=== PATIENT | male | born 1955 | race Caucasian/White ===

== ENCOUNTER 2016-10-09 20:08 | Inpatient (IN) | payer OTHER ==
[2016-10-09] MEDS ORDERED: HYDROmorphone 1 mg/ml ISec IVP STA (20:33)
--- NOTE | 2016-10-09 20:37 | ED PDOC ---
"Arrival/HPI - General Chief Complaint: Male Genitourinary Time Seen by Provider: 10/09/16 20:20 Historian: Patient, Family - History of Present Illness Narrative History of Present Illness (Text): 10/09/16 20:34 61 y/o male, pmh including bladder cancer s/p resection 06/2016, from [place], [place] , here with the daughter in law, c/o lower abdominal pain x 2 weeks with hematuria. Pt. has been having lower abdominal pain and been urinating gross hematuria for the past 2 weeks, here to visit the daughter in law which the pain has been very severe tonight which initiated him to come to the ER. pt. has no fever but feels the chills prior to the arrival, afebrile in the ER, no night sweat, no other medical or psychological complaints. Past Medical History - Provider Review Nursing Documentation Reviewed: Yes - Genitourinary/Gynecological Hx Bladder Cancer: (yes, bladder resection) - Psychiatric Hx Substance Use: No - Surgical History Other/Comment: Bladder resection last june Family/Social History - Physician Review Nursing Documentation Reviewed: Yes Family/Social History: Unknown Family HX Smoking Status: former Hx Alcohol Use: No Hx Substance Use: No Allergies/Home Meds Allergies/Adverse Reactions: Allergies No Known Allergies Allergy (Verified 10/09/16 20:28) Home Medications: Home Meds Medication Instructions Recorded Confirmed RX: No Known Home Med 10/09/16 10/09/16 Review of Systems - Review of Systems Constitutional: absent: Fatigue, Fevers Eyes: absent: Vision Changes ENT: absent: Hearing Changes Respiratory: absent: SOB, Cough Cardiovascular: absent: Chest Pain Gastrointestinal: Abdominal Pain. absent: Nausea, Vomiting Genitourinary Male: Hematuria. absent: Dysuria, Frequency, Urinary Output Changes Skin: absent: Rash, Pruritis Neurological: absent: Headache, Dizziness Physical Exam Vital Signs Reviewed: Yes Vital Signs Temp Pulse Resp BP Pulse Ox 10/09/16 23:33 66 16 137/70 99 10/09/16 20:29 98.2 F 78 18 140/105 H 100 Temperature: Afebrile Blood Pressure: Hypertensive Pulse: Regular Respiratory Rate: Normal Appearance: Positive for: Well-Appearing, Non-Toxic, Ill-Appearing Pain Distress: Severe Mental Status: Positive for: Alert and Oriented X 3 - Systems Exam Head: Present: Atraumatic, Normocephalic Pupils: Present: PERRL Extroacular Muscles: Present: EOMI Conjunctiva: Present: Normal Mouth: Present: Moist Mucous Membranes Neck: Present: Normal Range of Motion Respiratory/Chest: Present: Clear to Auscultation, Good Air Exchange. No: Respiratory Distress, Accessory Muscle Use Cardiovascular: Present: Regular Rate and Rhythm, Normal S1, S2. No: Murmurs Abdomen: Present: Normal Bowel Sounds. No: Tenderness, Distention, Peritoneal Signs Back: Present: Normal Inspection Upper Extremity: Present: Normal Inspection. No: Cyanosis, Edema Lower Extremity: Present: Normal Inspection. No: Edema Neurological: Present: GCS=15, Speech Normal, Motor Func Grossly Intact, Memory Normal Skin: Present: Warm, Dry. No: Normal Color (+jaundice noted) Psychiatric: Present: Alert, Oriented x 3, Normal Insight, Normal Concentration Medical Decision Making ED Course and Treatment: 10/09/16 20:36 -labs/ua/blood culture and urine culture -cxr -CT abdomen and pelvis -IVF/dilaudid -Pt. is sick looking, jaundice, temporal and muscle wasting noted. 10/09/16 23:31 -EKG: -Chest xray: wet read show no active disease -Labs are non-significant -UA show +UTI with hematuria -CT abdomen and pelvis show: Moderate right-sided hydroureteronephrosis secondary to an obstructing mass within the bladder, at the right ureteral orifice. Asymmetric enhancement of the right kidney, as detailed above.Examination is limited, secondary to lack of intra-abdominal fat. The mass within the right ureterovesicular junction measures 9.3 x 3.6 cm. -Pt. will need to be admitted for further evaluation as the mass is causing obstruction with the infection. 10/09/16 23:39 -I spoke to the medical transcriber Dr. Pickard and Dr. Marcial, discussed the case/labs /radiology results in detail, agreed to admit the patient. -Dr. Benson will put in the admission. -Pt. and family agreed to be admitted. - Lab Interpretations Lab Results: 10/09/16 20:30 10/09/16 20:30 Lab Results 10/09/16 20:30: PT 11.0, INR 1.02, APTT 27.3 10/09/16 20:30: Ammonia < 9 L 10/09/16 20:30: WBC 8.2, RBC 3.06 L, Hgb 8.9 L, Hct 27.2 L, MCV 88.9, MCH 29.1, MCHC 32.7, RDW 13.9, Plt Count 349, MPV 9.1, Gran % 58.4, Lymph % (Auto) 32.6, [place] % (Auto) 7.3 H, Eos % (Auto) 1.3 L, Baso % (Auto) 0.4, Gran # 4.81, Lymph # 2.7, [place] # 0.6, Eos # 0.1, Baso # 0.03 10/09/16 20:30: Sodium 137, Potassium 3.7, Chloride 98, Carbon Dioxide 31, Anion Gap 12, BUN 18, Creatinine 0.7, Est GFR ( Amer) > 60, Est GFR (Non- Af Amer) > 60, Random Glucose 100, Calcium 8.6, Total Bilirubin 0.3, AST 46, ALT 45, Alkaline Phosphatase 90, NT-Pro-B Natriuret Pep 508 H, Total Protein 6.8 , Albumin 3.7, Globulin 3.1, Albumin/Globulin Ratio 1.2 10/09/16 20:30: Urine Color Yellow, Urine Appearance Clear, Urine pH 8.5, Ur Specific [place] 1.015, Urine Protein 100 H, Urine Glucose (UA) Negative, Urine Ketones Negative, Urine Blood Large H, Urine Nitrate Positive H, Urine Bilirubin Negative, Urine Urobilinogen 1.0 H, Ur Leukocyte Esterase Trace H, Urine RBC Tntc, Urine WBC 2 - 5, Ur Epithelial Cells None, Urine Bacteria Few I have reviewed the lab results: Yes Interpretation: Abnormal lab values (+hematuria/+UTI) - RAD Interpretation Radiology Orders: 10/09/16 20:31 ABD & PELVIS IV CONTRAST ONLY [CT] Stat CHEST PORTABLE [RAD] Stat FINDINGS: Lower thorax: Bibasilar atelectasis. ABDOMEN: Liver: The liver is enlarged. Gallbladder and bile ducts: The gallbladder is only minimally distended, without calcified stones. No significant intra- or extrahepatic biliary ductal dilation. Pancreas: Enhances homogeneously. No ductal dilation. No discrete mass. Spleen: No acute findings. Adrenals: No acute findings. Kidneys and ureters: Asymmetric enhancement of the bilateral kidneys with decreased enhancement of the right kidney, in comparison to the left. Moderate right-sided hydroureteronephrosis, extending to the right ureterovesicular junction where a multilobulated contrast- enhancing mass is identified. EARL AZAR | Final Radiology Report CONFIDENTIALITY STATEMENT This report is intended only for use by the referring physician, and only in accordance with law. If you received this in error, call [phone]. Page 2 of 2 The remainder of the bladder is moderately distended, demonstrating mass effect on the rectosigmoid colon. Additional nodular enhancement is identified within the base of the bladder (series 2, image 142). The mass within the right ureterovesicular junction measures 9.3 x 3.6 cm. PELVIS: Bladder: As above. Reproductive: No acute findings. ABDOMEN and PELVIS: Stomach and bowel: Aerated stool is identified within the distended colon. Peritoneum: No significant fluid collection. No free air. Lymph nodes: Limited evaluation secondary to the lack of intra-abdominal fat. Vasculature: As above. Bones: Diffuse bony demineralization without lytic or blastic lesions. IMPRESSION: Moderate right-sided hydroureteronephrosis secondary to an obstructing mass within the bladder, at the right ureteral orifice. Asymmetric enhancement of the right kidney, as detailed above. Examination is limited, secondary to lack of intra-abdominal fat. Thank you for allowing us to participate in the care of your patient. Dictated and Authenticated by: Marni Mac MD 10/09/2016 11:03 PM Eastern Time ([place]) Transplant Surgeon: Radiologist - Medication Orders Current Medication Orders: Sodium Chloride (Sodium Chloride 0.9%) 1,000 mls @ 100 mls/hr IV .Q10H BARBARA Last Admin: 10/09/16 21:40 Dose: 100 mls/hr Discontinued Medications Hydromorphone HCl (Dilaudid) 1 mg IVP STAT STA Stop: 10/09/16 20:34 Last Admin: 10/09/16 21:44 Dose: 1 mg Sodium Chloride (Sodium Chloride 0.9%) 1,000 mls @ 250 mls/hr IV .Q4H BARBARA Ceftriaxone Sodium (Rocephin 1 Gram Ivpb) 1 gm in 100 mls @ 200 mls/hr IVPB STAT STA PRN Reason: Protocol Stop: 10/09/16 21:35 Last Admin: 10/09/16 21:50 Dose: 200 mls/hr Iohexol (Omnipaque 300 100 Ml) Confirm Administered Dose 100 ml IJ .[facility] Stop: 10/09/16 21:32 - PA / TAX ASSISTANT / Resident Statement / has reviewed & agrees with the documentation as recorded. Disposition/Present on Arrival - Present on Arrival Any Indicators Present on Arrival: No History of DVT/PE: No History of Uncontrolled Diabetes: No Urinary Catheter: No History of Decub. Ulcer: No History Surgical Site Infection Following: None - Disposition Have Diagnosis and Disposition been Completed?: Yes Diagnosis: Hematuria, Cystitis, Ureteral mass, Anemia Disposition: HOSPITALIZED Disposition Time: 23:41 Patient Plan: Observation Patient Problems: Current Active Problems Problem Status Onset Cystitis Acute Hematuria Acute Soft tissue mass Acute Condition: GUARDED Referrals: Bandar Beverly, [Primary Care Provider] - Follow up with primary Forms: [facility] (Polish)"
[2016-10-09] MEDS ORDERED: Sodium Chloride 0.9% 1,000 ML IV SCH ×2 (20:45→21:29)
[2016-10-09 21:05] LABS: PH,URINE 8.5 (4.7-8.0); URINE BILIRUBIN NEGATIVE (NEGATIVE); URINE BLOOD LARGE (NEGATIVE); URINE GLUCOSE (UA) NEGATIVE (NEGATIVE); URINE KETONE NEGATIVE (NEGATIVE); URINE LEUKOCYTE ESTERASE TRACE Leu/uL (NEGATIVE); URINE PROTEIN 100 mg/dL (<30 mg/dL)
[2016-10-09 21:06] LABS: URINE APPEARANCE CLEAR (CLEAR); URINE COLOR YELLOW (YELLOW)
[2016-10-09] MEDS ORDERED: cefTRIAXone 1 gm 1 GM/100 ML BAG IVPB STA (21:06)
[2016-10-09 21:10] LABS: BASO # 0.03 K/mm3 (0.0-2.0); BASO % 0.4 % (0.0-3.0); EOS # 0.1 (0.0-0.7); EOS % 1.3 % (1.5-5.0); GRAN # 4.81 (1.4-6.5); GRAN % 58.4 % (50.0-68.0); HEMATOCRIT 27.2 % (42.0-52.0); LYMPH # 2.7 (1.2-3.4); LYMPH % 32.6 % (22.0-35.0); MEAN CELL VOLUME 88.9 fl (80.0-105.0); MEAN CORPUSCULAR HEMOGLOBIN 29.1 pg (25.0-35.0); MEAN CORPUSCULAR HGB CONC 32.7 g/dl (31.0-37.0); MEAN PLATELET VOLUME 9.1 fl (7.0-11.0); MONO # 0.6 (0.1-0.6); MONO % 7.3 % (1.0-6.0); RED CELL DISTRIBUTION WIDTH 13.9 % (11.5-14.5); WHITE BLOOD COUNT 8.2 10^3/ul (4.5-11.0)
[2016-10-09 21:12] LABS: ALB/GLOB RATIO 1.2 (1.1-1.8); ALKALINE PHOSPHATASE 90 U/L (38-126); ALT/SGPT 45 U/L (7-56); AST/SGOT 46 U/L (17-59); BILIRUBIN,TOTAL 0.3 mg/dL (0.2-1.3); BLOOD UREA NITROGEN 18 mg/dL (7-21); CALCIUM 8.6 mg/dL (8.4-10.5); CARBON DIOXIDE 31 mmol/L (21-33); CHLORIDE 98 mmol/L (98-107); GFR AFRICAN-AMERICAN > 60; GLUCOSE,RANDOM 100 mg/dL (70-110); POTASSIUM 3.7 mmol/L (3.6-5.0); SODIUM 137 mmol/L (132-148); TOTAL PROTEIN 6.8 g/dL (5.8-8.3)
[2016-10-09 21:15] LABS: INR 1.02 (0.93-1.08); PARTIAL THROMBOPLASTIN TIME 27.3 Seconds (23.7-30.8)
[2016-10-09] MEDS ORDERED: Iohexol 300 100 ML IJ ONE (21:31)
[2016-10-09 21:50] LABS: URINE BACTERIA FEW (NEG); URINE RBC TNTC /hpf (0-2)
--- NOTE | 2016-10-09 23:03 | CT ---
EXAM: CT Abdomen and Pelvis With Intravenous Contrast CLINICAL HISTORY: 61 years old, male; Pain; Abdominal pain; Additional info: Lower abdominal pain x 2 weeks TECHNIQUE: Axial computed tomography images of the abdomen and pelvis with intravenous contrast. All CT scans at this facility use one or more dose reduction techniques, viz.: automated exposure control; ma/kV adjustment per patient size (including targeted exams where dose is matched to indication; i.e. head); or iterative reconstruction technique. Coronal and sagittal reformatted images were created and reviewed. CONTRAST: 100 mL of [id number] administered intravenously. COMPARISON: No relevant prior studies available. FINDINGS: Lower thorax: Bibasilar atelectasis. ABDOMEN: Liver: The liver is enlarged. Gallbladder and bile ducts: The gallbladder is only minimally distended, without calcified stones. No significant intra- or extrahepatic biliary ductal dilation. Pancreas: Enhances homogeneously. No ductal dilation. No discrete mass. Spleen: No acute findings. Adrenals: No acute findings. Kidneys and ureters: Asymmetric enhancement of the bilateral kidneys with decreased enhancement of the right kidney, in comparison to the left. Moderate right-sided hydroureteronephrosis, extending to the right ureterovesicular junction where a multilobulated contrast-enhancing mass is identified. The remainder of the bladder is moderately distended, demonstrating mass effect on the rectosigmoid colon. Additional nodular enhancement is identified within the base of the bladder (series 2, image 142). The mass within the right ureterovesicular junction measures 9.3 x 3.6 cm. PELVIS: Bladder: As above. Reproductive: No acute findings. ABDOMEN and PELVIS: Stomach and bowel: Aerated stool is identified within the distended colon. Peritoneum: No significant fluid collection. No free air. Lymph nodes: Limited evaluation secondary to the lack of intra-abdominal fat. Vasculature: As above. Bones: Diffuse bony demineralization without lytic or blastic lesions. IMPRESSION: Moderate right-sided hydroureteronephrosis secondary to an obstructing mass within the bladder, at the right ureteral orifice. Asymmetric enhancement of the right kidney, as detailed above. Examination is limited, secondary to lack of intra-abdominal fat.
[2016-10-10] MEDS: Sodium Chloride 0.9% 1,000 ML IV SCH ×3 (02:37→15:56)
[2016-10-10 03:41] VITALS: BMI 18.4
--- NOTE | 2016-10-10 04:54 | CP.PCM.HP ---
<WANDA SCHULTZ - Last Filed: 10/10/16 04:48> History of Present Illness - History of Present Illness History of Present Illness: Wanda Schultz, H&P for Dr. Marcial: CC: severe suprapubic pain HPI: 61M with PMH bladder cancer s/p laser surgery in 06/2016, presents with severe suprapubic pain x 1 day [employer]. Pt has been having crampy suprapubic/pelvic pain and gross hematuria for past 2 weeks. The pain worsened today, requiring him to come to ED. He denies any f/c/n/v, decreased appetite, anorexia, poor oral intake, cp, palpitations, sob, weakness, fatigue, dysphagia, weight loss, leg swelling. In ED, pt afebrile, hgb 8.9, mildly elevated bnp 508, UA + infxn and blood, Ct abd pelvis showed R sided hydronephrosis, tumor growth 9.3x3.6 cm at right ureteral orifice. Received rocephin x1 IV, dilaudid 1 mgx1 in ED. PMH: bladder cancer s/p laser surgery (06/2016 in [place], [place]) PSH: bladder laser surgery ALl: NKA FH: denies SH: lives with family in [place], [place]. currently visiting son in [place]. Denies alcohol use for past few years, occasionally drank few beers per day when he was young. Quit smoking 20 years ago, previously 1 ppd x 15 years. denies drug use. Ambulates by self, able to do his ADLs independently. Present on Admission - Present on Admission Any Indicators Present on Admission: No History of DVT/PE: No History of Uncontrolled Diabetes: No Urinary Catheter: No Decubitus Ulcer Present: No History Surgical Site Infection Following: None Review of Systems - Review of Systems All systems: reviewed and no additional remarkable complaints except Review of Systems: as per hPI Past Patient History - Past Social History Smoking Status: Former Smoker - MUSCULOSKELETAL/RHEUMATOLOGICAL Hx Falls: No Hx Fractures: Yes Other/Comment: Has plate on the right hip - GENITOURINARY/GYNECOLOGICAL Hx Bladder Cancer: (yes, bladder resection) - PSYCHIATRIC Hx Substance Use: No - SURGICAL HISTORY Other/Comment: Bladder resection last june Meds Allergies/Adverse Reactions: Allergies Allergy/AdvReac Type Severity Reaction Status Date / Time No Known Allergies Allergy Verified 10/09/16 20:28 Physical Exam - Constitutional Appears: Non-toxic, Older Than Stated Age, Cachectic - Head Exam Head Exam: ATRAUMATIC, NORMOCEPHALIC - Eye Exam Eye Exam: EOMI, PERRL. absent: Conjunctival injection, Scleral icterus Pupil Exam: NORMAL ACCOMODATION, PERRL - ENT Exam ENT Exam: Mucous Membranes Moist - Neck Exam Neck exam: Positive for: Normal Inspection - Respiratory Exam Respiratory Exam: Clear to Auscultation Bilateral, NORMAL BREATHING PATTERN. absent: Accessory Muscle Use - Cardiovascular Exam Cardiovascular Exam: RRR, +S1, +S2. absent: Systolic Murmur - GI/Abdominal Exam GI & Abdominal Exam: Soft, Tenderness. absent: Guarding, Mass, Rigid Additional comments: + suprapubic and pelvic tenderness noted. - Extremities Exam Extremities exam: Positive for: pedal pulses present. Negative for: calf tenderness, pedal edema - Back Exam Back exam: absent: CVA tenderness (L), CVA tenderness (R), vertebral tenderness - Neurological Exam Neurological exam: Alert, Oriented x3 Results - Vital Signs Recent Vital Signs: Last Vital Signs Temp 98.2 F 10/10/16 03:21 Pulse 57 L 10/10/16 03:21 Resp 19 10/10/16 03:21 BP 140/85 10/10/16 03:21 Pulse Ox 99 10/09/16 23:33 - Labs Result Diagrams: 10/09/16 20:30 10/09/16 20:30 Assessment & Plan - Assessment and Plan (Free Text) Assessment: 61 [place] M with PMH bladder cancer s/p laser resection (06/2016), admitted for UTI and gross hematuria 2/2 likely uretero obstructing mass; anemia. Plan: UTI and hematuria 2/2 likely uretero obstructing mass: - Pt has been having gross hematuria (with clots of blood in urine), suprapubic pain x 2 weeks. The pain was very severe today, thats why pt came to ED. - afebrile. no leukocytosis, Hgb 8.9 (baseline unknown). - UA showed clear yellow urine, protein 100, large blood, rbc tntc, + nitrate and trace leuk esterase, few bacteria, neg bili, 2-5 wbcs. - Coags within nrml limits - BUN/cr 18/0.7. - received rocephin x1, dilaudid in ed - F/u urine culture. - Consult Urology - Dr. Woods. f/u recs. Normocytic Anemia: - Likely 2/2 acute blood loss. - Consider obtaining Type & Screen - F/u iron studies, b12, folate Hx of bladder cancer: - F/u urology recs DVT PPX: SCDs GI PPX: Protonix Discussed with Dr Marcial. Wanda Schultz, PGY1 - Date & Time Date: 10/10/16 Time: 05:05 <Aggie HOLT,Jonny - Last Filed: 10/13/16 09:44> Results - Vital Signs Recent Vital Signs: Last Vital Signs Temp 98 F 10/13/16 08:00 Pulse 66 10/13/16 08:00 Resp 20 10/13/16 08:00 BP 132/78 10/13/16 08:00 Pulse Ox 99 10/13/16 08:00 - Labs Result Diagrams: 10/13/16 06:55 10/13/16 06:55 Labs: Laboratory Results - last 24 hr 10/13/16 10/13/16 10/13/16 06:55 06:55 06:55 WBC 7.2 RBC 3.27 L Hgb 9.3 L Hct 29.2 L MCV 89.3 MCH 28.4 MCHC 31.8 RDW 14.4 Plt Count 377 MPV 9.2 Gran % 69.3 H Lymph % (Auto) 18.9 L [place] % (Auto) 9.3 H Eos % (Auto) 2.2 Baso % (Auto) 0.3 Gran # 5.00 Lymph # 1.4 [place] # 0.7 H Eos # 0.2 Baso # 0.02 Sodium 139 Potassium 4.3 Chloride 106 Carbon Dioxide 23 Anion Gap 14 BUN 28 H Creatinine 1.0 Est GFR ( Amer) > 60 Est GFR (Non-Af Amer) > 60 Random Glucose 87 Calcium 8.5 Total Bilirubin 0.1 L AST 53 ALT 29 Alkaline Phosphatase 90 Total Protein 6.7 Albumin 3.5 Globulin 3.3 Albumin/Globulin Ratio 1.1 Carcinoembryonic Ag 1.4 Attending/Attestation - Attestation I have personally seen and examined this patient.: Yes I have fully participated in the care of the patient.: Yes I have reviewed all pertinent clinical information: Yes Notes (Text): -I agree with the above H&P completed by the resident physician with the following additions and/or changes: -The patient is a 61 year old man with a history of bladder cancer (s/p laser resection 06/2016), being admitted for UTI and gross hematuria due to a new, right-sided obstructive bladder mass. He will be evaluated by urology in the morning. IV Morphine for pain control. Will keep NPO and start IVF's overnight.
[2016-10-10] MEDS: Pantoprazole 40 mg EC Tab PO SCH (06:22)
[2016-10-10 07:26] LABS: BASO # 0.02 K/mm3 (0.0-2.0); BASO % 0.3 % (0.0-3.0); EOS # 0.1 (0.0-0.7); EOS % 0.9 % (1.5-5.0); GRAN # 5.06 (1.4-6.5); GRAN % 72.1 % (50.0-68.0); HEMATOCRIT 27.3 % (42.0-52.0); LYMPH # 1.3 (1.2-3.4); LYMPH % 18.9 % (22.0-35.0); MEAN CELL VOLUME 88.3 fl (80.0-105.0); MEAN CORPUSCULAR HEMOGLOBIN 29.1 pg (25.0-35.0); MEAN PLATELET VOLUME 8.5 fl (7.0-11.0); MONO # 0.6 (0.1-0.6); MONO % 7.8 % (1.0-6.0)
[2016-10-10 07:37] LABS: ALKALINE PHOSPHATASE 91 U/L (38-126); ALT/SGPT 36 U/L (7-56); AST/SGOT 41 U/L (17-59); BILIRUBIN,TOTAL 0.5 mg/dL (0.2-1.3); BLOOD UREA NITROGEN 11 mg/dL (7-21); CALCIUM 8.5 mg/dL (8.4-10.5); CARBON DIOXIDE 28 mmol/L (21-33); CHLORIDE 104 mmol/L (95-110); GFR AFRICAN-AMERICAN > 60; GLUCOSE,RANDOM 85 mg/dL (70-110); MAGNESIUM 1.9 mg/dL (1.7-2.2); PHOSPHOROUS 2.8 mg/dL (2.5-4.5); POTASSIUM 3.8 mmol/L (3.6-5.0); SODIUM 138 mmol/L (132-148); TOTAL PROTEIN 6.6 g/dL (5.8-8.3)
[2016-10-10 08:28] LABS: IRON 34 ug/dL (45-180)
--- NOTE | 2016-10-10 08:31 | RAD ---
HISTORY: medical clearance COMPARISON: None available. TECHNIQUE: Chest, one view. FINDINGS: LUNGS: No focal consolidation. Please note that chest x-ray has limited sensitivity for the detection of pulmonary masses. PLEURA: No significant pleural effusion identified. No definite pneumothorax . CARDIOVASCULAR: Heart size appears top normal. OSSEOUS STRUCTURES: Osseous demineralization. Degenerative changes. VISUALIZED UPPER ABDOMEN: Unremarkable. OTHER FINDINGS: None. IMPRESSION: No focal consolidation, significant pleural effusion, or definite pneumothorax identified.
[2016-10-10] MEDS: cefTRIAXone 1 gm 1 GM/100 ML BAG IVPB SCH (11:05)
[2016-10-10 13:29] LABS: FOLATE 8.6 ng/mL
[2016-10-11] MEDS: Pantoprazole 40 mg EC Tab PO SCH (05:49)
[2016-10-11 07:58] LABS: ALKALINE PHOSPHATASE 94 U/L (38-126); ALT/SGPT 31 U/L (7-56); AST/SGOT 30 U/L (17-59); BILIRUBIN,TOTAL 0.5 mg/dL (0.2-1.3); BLOOD UREA NITROGEN 14 mg/dL (7-21); CALCIUM 8.8 mg/dL (8.4-10.5); CARBON DIOXIDE 24 mmol/L (21-33); CHLORIDE 104 mmol/L (95-110); GFR AFRICAN-AMERICAN > 60; GLUCOSE,RANDOM 88 mg/dL (70-110); MAGNESIUM 1.8 mg/dL (1.7-2.2); PHOSPHOROUS 3.3 mg/dL (2.5-4.5); POTASSIUM 4.5 mmol/L (3.6-5.0); SODIUM 136 mmol/L (132-148); TOTAL PROTEIN 6.9 g/dL (5.8-8.3)
[2016-10-11] MEDS: Sodium Chloride 0.9% 1,000 ML IV SCH ×3 (08:13→17:38)
[2016-10-11 08:21] LABS: BASO # 0.02 K/mm3 (0.0-2.0); BASO % 0.3 % (0.0-3.0); EOS # 0.2 (0.0-0.7); EOS % 3.2 % (1.5-5.0); GRAN # 4.88 (1.4-6.5); GRAN % 70.6 % (50.0-68.0); HEMATOCRIT 29.9 % (42.0-52.0); LYMPH # 1.3 (1.2-3.4); LYMPH % 18.7 % (22.0-35.0); MEAN CELL VOLUME 89.3 fl (80.0-105.0); MEAN CORPUSCULAR HEMOGLOBIN 28.7 pg (25.0-35.0); MEAN CORPUSCULAR HGB CONC 32.1 g/dl (31.0-37.0); MEAN PLATELET VOLUME 9.4 fl (7.0-11.0); MONO # 0.5 (0.1-0.6); MONO % 7.2 % (1.0-6.0); RED CELL DISTRIBUTION WIDTH 14.3 % (11.5-14.5); WHITE BLOOD COUNT 6.9 10^3/ul (4.5-11.0)
[2016-10-11] MEDS: cefTRIAXone 1 gm 1 GM/100 ML BAG IVPB SCH (10:30)
--- NOTE | 2016-10-11 13:36 | CP.PCM.PN ---
"<Logan Henriquez - Last Filed: 10/11/16 14:54> Subjective - Date & Time of Evaluation Date of Evaluation: 10/11/16 Time of Evaluation: 13:34 - Subjective Subjective: Patient has been seen and examined. He reports decreased suprapubic tenderness. Denies Fever, Chills, CP, SOB, or change in bowel habits. Objective - Vital Signs/Intake and Output Vital Signs (last 24 hours): Temp Pulse Resp BP Pulse Ox 98.0 F 59 L 20 128/81 97 10/11/16 08:00 10/11/16 08:00 10/11/16 08:00 10/11/16 08:00 10/11/16 08:00 Intake and Output: 10/11/16 10/11/16 06:59 18:59 Intake Total 540 Output Total 500 Balance 40 - Medications Medications: Current Medications Sodium Chloride (Sodium Chloride 0.9%) 1,000 mls @ 100 mls/hr IV .Q10H [facility] Last Admin: 10/11/16 08:13 Dose: 100 mls/hr Ceftriaxone Sodium (Rocephin 1 Gram Ivpb) 1 gm in 100 mls @ 100 mls/hr IVPB DAILY [facility] PRN Reason: Protocol Last Admin: 10/11/16 10:30 Dose: 100 mls/hr Morphine Sulfate (Morphine) 2 mg IVP Q4H PRN PRN Reason: Pain, severe (8-10) Ondansetron HCl (Zofran Inj) 4 mg IVP Q6H PRN PRN Reason: Nausea/Vomiting Pantoprazole Sodium (Protonix Ec Tab) 40 mg PO 0600 [facility] Last Admin: 10/11/16 05:49 Dose: 40 mg - Labs Labs: 10/11/16 06:50 10/11/16 06:50 PT 11.0 Seconds (9.9-11.8) 10/09/16 20:30 INR 1.02 (0.93-1.08) 10/09/16 20:30 APTT 27.3 Seconds (23.7-30.8) 10/09/16 20:30 - Constitutional Appears: Non-toxic, No Acute Distress - Head Exam Head Exam: ATRAUMATIC, NORMOCEPHALIC - Eye Exam Eye Exam: Normal appearance - ENT Exam ENT Exam: Mucous Membranes Moist - Respiratory Exam Respiratory Exam: Clear to Ausculation Bilateral - Cardiovascular Exam Cardiovascular Exam: +S1, +S2 - GI/Abdominal Exam Additional comments: suprapubic tenderness with palpable bladder. - Extremities Exam Extremities Exam: Normal Capillary Refill. absent: Pedal Edema - Neurological Exam Neurological Exam: Alert, Oriented x3 - Psychiatric Exam Psychiatric exam: Normal Affect, Normal Mood - Skin Skin Exam: Normal Color Assessment and Plan - Assessment and Plan (Free Text) Assessment: 61 Amharic M with PMH bladder cancer s/p laser resection (06/2016), admitted for UTI and gross hematuria 2/2 to bladder mass shown on CT. CT also showed hydronephrosis 2/2 to bladder mass. Patient also anemic on admission, likely secondary to the gross hematuria. Afebrile with no leukocytosis on admission. Plan: 1. Hematuria 2/2 likely uretero obstructing mass: - afebrile. no leukocytosis, Hgb 9.6 (trending up) (baseline unknown). - Urine output 2000 today - UA on admission showed clear yellow urine, protein 100, large blood, rbc tntc , + nitrate and trace leuk esterase, few bacteria, neg bili, 2-5 wbcs. - Urine Cultures (negative) | Prelim blood culture shows no growth after 24 hours. Rocephin DCd - Coags within nrml limits - Normal Kidney function - Consult Urology - Dr. Woods. f/u recs. - 2. Normocytic Anemia 2/2 to gross hematuria: - Likely 2/2 acute blood loss. - Iron studies show low iron and low iron Sat. - Hgb Trending up at 9.6 3. Hx of bladder cancer: - Urology consulted (Chuck) - Oncology consulted (Jovan) DVT PPX: SCDs GI PPX: Protonix Dispo: Patients family is very concerned about patients condition. They are also frustrated that they have not gotten any additional answers since patient has been admitted. They specifically want to know whether the cancer is localized or if it has spread. They want a full scan of the whole body and a report to confirm this. Oncology was also consulted on the case. Per family, if cancer has spread they do not want treatment. If it is localized they do want treatment. Further history from family (Son and daughter in law) revealed that they were recommended additional chemo and radiation therapy when they followed up with previous urologist and they refused. Contact for family is Mike Duarte (son) . He or daughter-in law would like to be contacted if there are any updates. Patient seen, reviewed, and discussed with Attending. Logan Henriquez, PGY1 <Yani Mcconnell - Last Filed: 10/12/16 17:00> Objective - Vital Signs/Intake and Output Vital Signs (last 24 hours): Temp Pulse Resp BP Pulse Ox 98.1 F 61 18 135/82 99 10/12/16 16:20 10/12/16 16:20 10/12/16 16:20 10/12/16 16:20 10/12/16 08:00 Intake and Output: 10/12/16 10/12/16 06:59 18:59 Intake Total 700 Output Total 1251 Balance -551 - Medications Medications: Current Medications Acetaminophen (Tylenol 325mg Tab) 650 mg PO Q4H PRN PRN Reason: Pain, Mild (1-3) Enoxaparin Sodium (Lovenox) 30 mg SC DAILY [facility] PRN Reason: Protocol Last Admin: 10/11/16 17:27 Dose: 30 mg Sodium Chloride (Sodium Chloride 0.9%) 1,000 mls @ 100 mls/hr IV .Q10H [facility] Last Admin: 10/12/16 14:11 Dose: 100 mls/hr Morphine Sulfate (Morphine) 2 mg IVP Q4H PRN PRN Reason: Pain, severe (8-10) Ondansetron HCl (Zofran Inj) 4 mg IVP Q6H PRN PRN Reason: Nausea/Vomiting Pantoprazole Sodium (Protonix Ec Tab) 40 mg PO 0600 [facility] Last Admin: 10/12/16 05:27 Dose: Not Given - Labs Labs: 10/12/16 06:45 10/12/16 06:45 PT 11.0 Seconds (9.9-11.8) 10/09/16 20:30 INR 1.02 (0.93-1.08) 10/09/16 20:30 APTT 27.3 Seconds (23.7-30.8) 10/09/16 20:30 Attending/Attestation - Attestation I have personally seen and examined this patient.: Yes I have fully participated in the care of the patient.: Yes I have reviewed all pertinent clinical information, including history, physical exam and plan: Yes Notes (Text): 10/12/16 16:50 Attending note; Patient seen and examined with resident. Patient is a 61-year-old male is admitted with suprapubic pain. Patient was diagnosed with bladder cancer patient had cystoscopy and biopsy done by in JUNE 2016 in [place]. The patient was referred to [facility] DR. Banks. As per family the patient was staged as T2 N0 M0. Patient did not want chemotherapy/radiation and surgery as recommended by [facility] in June 2016. Currently family is requesting oncology to stage the patient. As per patient wishes he does not want any aggressive treatment if the tumor is spread beyond the bladder area. CT showed significant bladder mass and right hydronephrosis. CT chest ordered. Oncology evaluation requested. Case discussed with urologist dr. Woods in detail. Urology will discuss with family for further care. Anemia; got 1 dose of IV iron. Cachexia; dietitian evaluation ordered. Case discussed with patient's son/daughter in Law in detail. 10/12/16 16:54 10/12/16 16:59"
[2016-10-11] MEDS ORDERED: Iohexol 350 MG/100 ML VIAL ONE (14:25)
[2016-10-11] MEDS ORDERED: Enoxaparin 30 mg Syringe SC SCH (16:45)
--- NOTE | 2016-10-11 17:06 | CT ---
CT chest with IV contrast Indication: Rule out pulmonary Mets, bladder cancer Technique: Contiguous axial images were obtained through the chest with intravenous contrast enhancement. Sagittal and coronal reconstructions were generated and reviewed. This CT exam was performed using 1 or more of the falling dose reduction techniques: Automated exposure control, adjustment of the MAA and/or kV according to patient size, and/or use of iterative reconstruction technique. IV Contrast: 100 mL Omnipaque 350 Radiation dose (DLP): 148.67 MGy-cm. Comparison: Chest x-ray performed 10/09/16 Findings: Visualized portions of the inferior thyroid gland appear unremarkable. The mediastinal and hilar vascular structures appear within normal limits. The heart appears within normal limits of size. No large central or segmental pulmonary embolus evident. No focal consolidation. No pleural effusion. No pneumothorax. No suspicious pulmonary nodules measuring greater than 5 mm. Limited visualization of the upper abdomen reveals partially imaged hepatomegaly. Numerous too small to characterize hepatic hypodensities throughout the liver, the largest measuring approximately 9 mm. Asymmetric enhancement of the bilateral kidneys with decreased enhancement of the right kidney as compared to the left. Partially imaged moderate hydronephrosis. Please refer to CT of the abdomen and pelvis with contrast performed 10/09/16 for more detailed discussion an additional findings. Osseous demineralization. No acute osseous abnormality is detected. Impression: No pulmonary pathology appreciated. Limited visualization of the upper abdomen: Partially imaged hepatomegaly. Numerous too small to characterize hepatic hypodensities throughout the liver, the largest measuring approximately 9 mm. Asymmetric enhancement of the bilateral kidneys with decreased enhancement of the right kidney as compared to the left. Partially imaged moderate hydronephrosis. Please refer to CT of the abdomen and pelvis with contrast performed 10/09/16 for more detailed discussion an additional findings.
--- NOTE | 2016-10-11 22:15 | PCM.URO ---
Urology Progress Note - Subjective Hematuria: Yes - Objective Intake & Output: Intake & Output 10/11/16 10/11/16 10/12/16 06:59 18:59 06:59 Intake Total 480 Output Total 1100 Balance -620 Intake: Oral 480 Output: Urine 1100 Urine, Voided 1100 Other: # Bowel Movements 1 Vital Signs: Vital Signs - 24 hr 10/11/16 16:00 Temperature 97.8 F Pulse Rate 55 L Respiratory 16 Rate Blood Pressure 131/81 O2 Sat by Pulse 98 Oximetry - Plan Additional Information: plans: to be discussed / may need cystoscopy /
[2016-10-12] MEDS: Pantoprazole 40 mg EC Tab PO SCH (05:27)
[2016-10-12 07:10] LABS: ALB/GLOB RATIO 1.1 (1.1-1.8); ALKALINE PHOSPHATASE 98 U/L (38-126); ALT/SGPT 35 U/L (7-56); AST/SGOT 48 U/L (17-59); BILIRUBIN,TOTAL 0.1 mg/dL (0.2-1.3); BLOOD UREA NITROGEN 16 mg/dL (7-21); CALCIUM 8.8 mg/dL (8.4-10.5); CARBON DIOXIDE 28 mmol/L (21-33); CHLORIDE 104 mmol/L (98-107); GFR AFRICAN-AMERICAN > 60; GLUCOSE,RANDOM 86 mg/dL (70-110); MAGNESIUM 1.8 mg/dL (1.7-2.2); PHOSPHOROUS 2.9 mg/dL (2.5-4.5); POTASSIUM 4.2 mmol/L (3.6-5.0); SODIUM 140 mmol/L (132-148)
[2016-10-12 07:13] LABS: BASO # 0.03 K/mm3 (0.0-2.0); BASO % 0.4 % (0.0-3.0); EOS # 0.2 (0.0-0.7); EOS % 2.9 % (1.5-5.0); GRAN # 4.4 (1.4-6.5); GRAN % 62.9 % (50.0-68.0); HEMATOCRIT 30.8 % (42.0-52.0); LYMPH # 1.7 (1.2-3.4); LYMPH % 24.5 % (22.0-35.0); MEAN CELL VOLUME 89.3 fl (80.0-105.0); MEAN CORPUSCULAR HEMOGLOBIN 28.4 pg (25.0-35.0); MEAN CORPUSCULAR HGB CONC 31.8 g/dl (31.0-37.0); MEAN PLATELET VOLUME 9.3 fl (7.0-11.0); MONO # 0.7 (0.1-0.6); MONO % 9.3 % (1.0-6.0); RED CELL DISTRIBUTION WIDTH 14.3 % (11.5-14.5)
--- NOTE | 2016-10-12 07:17 | CARD ---
APPROVED REPORT EKG Measurement Heart [id number] <Conclusion> Sinus bradycardia Otherwise normal ECG
--- NOTE | 2016-10-12 08:48 | CP.PCM.PN ---
<Nathalia Faustin - Last Filed: 10/12/16 17:41> Subjective - Date & Time of Evaluation Date of Evaluation: 10/12/16 Time of Evaluation: 08:46 - Subjective Subjective: PGY-2 Hospitalist progress note. Patient seen and examined at bedside. No acute distress. Patient denies any new pain. He continues to have pubic pain consistent with previous pain. He denies chest pain, sob, back pain, n/v/d/c. Objective - Vital Signs/Intake and Output Vital Signs (last 24 hours): Temp Pulse Resp BP Pulse Ox 97.9 F 81 18 140/83 99 10/12/16 08:00 10/12/16 08:00 10/12/16 08:00 10/12/16 08:00 10/12/16 08:00 Intake and Output: 10/12/16 10/12/16 06:59 18:59 Intake Total 700 Output Total 1251 Balance -551 - Medications Medications: Current Medications Enoxaparin Sodium (Lovenox) 30 mg SC DAILY [facility] PRN Reason: Protocol Last Admin: 10/11/16 17:27 Dose: 30 mg Sodium Chloride (Sodium Chloride 0.9%) 1,000 mls @ 100 mls/hr IV .Q10H [facility] Last Admin: 10/11/16 17:38 Dose: 100 mls/hr Morphine Sulfate (Morphine) 2 mg IVP Q4H PRN PRN Reason: Pain, severe (8-10) Ondansetron HCl (Zofran Inj) 4 mg IVP Q6H PRN PRN Reason: Nausea/Vomiting Pantoprazole Sodium (Protonix Ec Tab) 40 mg PO 0600 [facility] Last Admin: 10/12/16 05:27 Dose: Not Given - Labs Labs: 10/12/16 06:45 10/12/16 06:45 PT 11.0 Seconds (9.9-11.8) 10/09/16 20:30 INR 1.02 (0.93-1.08) 10/09/16 20:30 APTT 27.3 Seconds (23.7-30.8) 10/09/16 20:30 - Constitutional Appears: No Acute Distress, Chronically Ill - Head Exam Head Exam: ATRAUMATIC, NORMOCEPHALIC - Eye Exam Eye Exam: Normal appearance - ENT Exam ENT Exam: Mucous Membranes Moist - Respiratory Exam Respiratory Exam: Clear to Ausculation Bilateral, NORMAL BREATHING PATTERN. absent: Decreased Breath Sounds, Rales, Rhonchi, Wheezes, Respiratory Distress - Cardiovascular Exam Cardiovascular Exam: REGULAR RHYTHM, +S1, +S2. absent: Tachycardia, Murmur - GI/Abdominal Exam GI & Abdominal Exam: Soft, Normal Bowel Sounds. absent: Distended, Firm, Guarding Additional comments: pubic tenderness - Extremities Exam Extremities Exam: Full ROM, Normal Inspection. absent: Pedal Edema, Tenderness - Back Exam Back Exam: NORMAL INSPECTION. absent: CVA tenderness (L), CVA tenderness (R), paraspinal tenderness - Neurological Exam Neurological Exam: Alert, Awake, Oriented x3 - Skin Skin Exam: Dry, Intact, Normal Color, Warm Assessment and Plan - Assessment and Plan (Free Text) Assessment: 61 [place]uran M with PMH bladder cancer s/p laser resection (06/2016), admitted for gross hematuria 2/2 to bladder mass shown on CT. CT also showed hydronephrosis 2 /2 to bladder mass. Patient found to be anemic on admission, likely secondary to the gross hematuria. Plan: 1. Hematuria 2/2 likely uretero obstructing mass: - afebrile. no leukocytosis - Urine output 2350 over past 24 hours - UA on admission showed clear yellow urine, protein 100, large blood, rbc tntc , + nitrate and trace leuk esterase, few bacteria, neg bili, 2-5 wbcs. - Urine Cultures is negative - blood culture shows no growth after 48 hours - Rocephin stopped yesterday - Normal Kidney function - CT chest did not show any pulmonary masses or lymph nodes - Consult Urology - Dr. Woods. - possible cystoscope tomorrow 2. Normocytic Anemia 2/2 to gross hematuria: - Likely 2/2 acute blood loss. - Iron studies show low iron and low iron Sat. - iron sucrose given yesterday - Hgb 9.8 today 3. Hx of bladder cancer: - Urology consulted, Dr. Woosd - Oncology consulted, Dr. Aldana DVT PPX: SCDs GI PPX: Protonix Dispo: Contact for family is Mike Duarte (son) . He or daughter- in law would like to be contacted if there are any updates. <Yani Mcconnell - Last Filed: 10/13/16 14:20> Objective - Vital Signs/Intake and Output Vital Signs (last 24 hours): Temp Pulse Resp BP Pulse Ox 98 F 66 20 132/78 99 10/13/16 08:00 10/13/16 08:00 10/13/16 08:00 10/13/16 08:00 10/13/16 08:00 Intake and Output: 10/13/16 10/13/16 06:59 18:59 Intake Total 480 Output Total 500 Balance -20 - Medications Medications: Current Medications Acetaminophen (Tylenol 325mg Tab) 650 mg PO Q4H PRN PRN Reason: Pain, Mild (1-3) Enoxaparin Sodium (Lovenox) 30 mg SC DAILY [facility] PRN Reason: Protocol Last Admin: 10/11/16 17:27 Dose: 30 mg Sodium Chloride (Sodium Chloride 0.9%) 1,000 mls @ 100 mls/hr IV .Q10H [facility] Last Admin: 10/12/16 22:00 Dose: 100 mls/hr Morphine Sulfate (Morphine) 2 mg IVP Q4H PRN PRN Reason: Pain, severe (8-10) Ondansetron HCl (Zofran Inj) 4 mg IVP Q6H PRN PRN Reason: Nausea/Vomiting Pantoprazole Sodium (Protonix Ec Tab) 40 mg PO 0600 [facility] Last Admin: 10/13/16 08:04 Dose: Not Given - Labs Labs: 10/13/16 06:55 10/13/16 06:55 PT 11.0 Seconds (9.9-11.8) 10/09/16 20:30 INR 1.02 (0.93-1.08) 10/09/16 20:30 APTT 27.3 Seconds (23.7-30.8) 10/09/16 20:30 Attending/Attestation - Attestation I have personally seen and examined this patient.: Yes I have fully participated in the care of the patient.: Yes I have reviewed all pertinent clinical information, including history, physical exam and plan: Yes Notes (Text): 10/13/16 14:18 Attending note; Patient seen and examined with resident. Patient is a 61-year-old male is admitted with suprapubic pain. patient with a history of bladder cancer and did not receive any treatment yet. CT showed significant bladder mass and right hydronephrosis. CT chest Is negative for any pulmonary mass of lymphadenopathy. Oncology evaluation appreciated. Needs PET scan as outpatient. Case discussed with urologist dr. Woods in detail. Urology will discuss with family for further care. Anemia; got 1 dose of IV iron. Cachexia; dietitian evaluation ordered. Case discussed with patient's son in detail.
[2016-10-12] MEDS: Sodium Chloride 0.9% 1,000 ML IV SCH ×2 (14:11→22:00)
--- NOTE | 2016-10-12 17:23 | CON ---
DATE: 10/12/2016 This is a [facility] visit on the medical floor. For Dr. Aldana. CHIEF COMPLAINT: Hematuria. HISTORY OF PRESENT ILLNESS: The patient is a 61-year-old Frisian and Albanian speaking male seen with his son at the bedside, who act as blending machine feeder, a resident of [place] who was treated in [facility] in [place] for bladder cancer on 07/02/[address] Miller, telephone number [phone], who was his treating urologist with definitive surgery deferred to Dr. Aly, phone number [phone], as the original urologist is older and the second procedure will be more demanding with referral made as per the son. 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 Pathology report handed today by the son. It is unknown whether the patient had a PET/CT scan, this will be determined. The patient at present is resting comfortably with low suprapubic pain as his main compliant with the patient advised to request pain medications every 4 hours as indicated for his pain. ALLERGIES: NO KNOWN ALLERGIES. MEDICATIONS: At this point include Lovenox, morphine, Protonix, Zofran IV 100 mL an hour with Venofer having discontinued. PAST MEDICAL HISTORY: Significant for questionable TURP in [facility], in [facility] on 07/01/2016 with pathology report as listed above. Otherwise, no significant history of significant as per the patient's son. FAMILY AND SOCIAL HISTORY: The patient has history of smoking in the past;however, he reports having quit many years ago. The patient living with his family in [place], [place] visiting his son in [place]. Denies alcohol use. REVIEW OF SYSTEMS: The patient's son reports weight loss in the recent few weeks due to lack of appetite. The patient presently weighs 101 pounds, 5 feet 2 inches tall. OBJECTIVE: VITAL SIGNS: Temperature 97.9, pulse 81, respirations 18, blood pressure 140/83, pulse ox 99%. GENERAL: He appears cachectic. HEENT: Unremarkable. NECK: Supple. HEART: Regular rate. LUNGS: Clear. ABDOMEN: Scaphoid with minimal tenderness to suprapubic palpation. NEUROLOGIC: Awake, alert and oriented. SKIN: Otherwise warm, dry and clear. LABORATORY DATA: The patient's labs were done. White blood cell count today of 7.0, hemoglobin 9.8, hematocrit of 30.8, platelet count of 401,000 with a chem metabolic panel within normal range with a percent saturation of iron of 13% and 2 days prior vitamin B12 greater than 1000 and folate of 8.6. INR of 1.02 with urine specimen showing large amount of blood. Nitrate positive with no growth on his urine culture and blood cultures. The patient did have CT scan of the abdomen and pelvis done on 10/09/2016. It was read as moderate right-sided hydroureteronephrosis secondary to obstructing mass within bladder at the right ureteral orifice, asymmetric enhancement of the right kidney as examination is limited due to lack of intraabdominal fat. The patient had a CT scan of his chest done yesterday was read as no pulmonary pathology appreciated limited visualization of the upper abdomen, partially image for hepatomegaly, numerous too small to characterize hepatic hypodensity throughout the liver largest measuring approximately 9 mm asymmetric, enhancement of the bilateral kidneys with decreased enhancement of the right kidney, as compared to left partially image moderate hydronephrosis. On his abdominal CT, the reports says there is a mass effect on the rectosigmoid colon, nodule enhancement within the base of the bladder, mass within the right ureterovesical junction measuring 9.3 x 3.6 cm. ASSESSMENT: For this patient is that of urothelial carcinoma high-grade papillary involving the muscularis propria, hydroureteronephrosis obstructing mass on the right side of the bladder, suprapubic pain secondary to above, cachexia malignancy, anemia secondary to hematuria. PLAN: For this patient after conversation with Dr. Aldana and conversation with the patient and his son with translation is to await for previous testing as per his urologist, Dr. Miller in [place] with reports to be forwarded to see whether PET/CT scan was done with consideration for cystoscopy as per Dr. Woods, urology consult with continuation of analgesics for his pain. Monitoring clinically for his anemic indices with tumor marker testing for his CEA along with consideration for an appetite stimulants as indicated. We will monitor clinically and with labs. Prognosis for this patient is guarded with PET/CT scan to be arranged for once the patient is stable if one was not done in the recent past. Jeevan Saldivar MD
--- NOTE | 2016-10-12 19:10 | CON ---
UROLOGY CONSULTATION DATE: 10/11/2016 REASON FOR CONSULTATION: Gross hematuria. HISTORY OF PRESENT ILLNESS: The patient was admitted with gross hematuria and a possible bladder mass. The patient is under the care of the hospitalist. Past medical and surgical is all listed on the chart. MEDICATIONS: See chart. ALLERGIES: . PHYSICAL EXAMINATION GENERAL: A well-nourished male, in no apparent distress. He is currently resting comfortably in his bed. ABDOMEN: The abdomen is relatively soft. RECTAL: Deferred. LABORATORY DATA: CAT scan, see chart. DIAGNOSIS: Gross hematuria and possible bladder mass. PLAN: The plan is as follows: We will discuss options and timing for cystoscopic evaluation depending on the patient's clinical course. In summary, then a 61-year-old gentleman, who is admitted to the care hospitalist. The plan is as follows: We will try to obtain some previous records from his previous care and then we will make plans for a cystoscopic evaluation, possible biopsy, and then further recommendations to follow. Thank you for the urology consult. Levi Woods MD
[2016-10-13 07:11] LABS: BASO # 0.02 K/mm3 (0.0-2.0); BASO % 0.3 % (0.0-3.0); EOS # 0.2 (0.0-0.7); EOS % 2.2 % (1.5-5.0); GRAN % 69.3 % (50.0-68.0); HEMATOCRIT 29.2 % (42.0-52.0); LYMPH # 1.4 (1.2-3.4); LYMPH % 18.9 % (22.0-35.0); MEAN CELL VOLUME 89.3 fl (80.0-105.0); MEAN CORPUSCULAR HEMOGLOBIN 28.4 pg (25.0-35.0); MEAN CORPUSCULAR HGB CONC 31.8 g/dl (31.0-37.0); MEAN PLATELET VOLUME 9.2 fl (7.0-11.0); MONO # 0.7 (0.1-0.6); MONO % 9.3 % (1.0-6.0); RED CELL DISTRIBUTION WIDTH 14.4 % (11.5-14.5); WHITE BLOOD COUNT 7.2 10^3/ul (4.5-11.0)
[2016-10-13 07:46] LABS: ALB/GLOB RATIO 1.1 (1.1-1.8); ALKALINE PHOSPHATASE 90 U/L (38-126); ALT/SGPT 29 U/L (7-56); AST/SGOT 53 U/L (17-59); BILIRUBIN,TOTAL 0.1 mg/dL (0.2-1.3); BLOOD UREA NITROGEN 28 mg/dL (7-21); CALCIUM 8.5 mg/dL (8.4-10.5); CARBON DIOXIDE 23 mmol/L (21-33); CHLORIDE 106 mmol/L (98-107); GFR AFRICAN-AMERICAN > 60; GLUCOSE,RANDOM 87 mg/dL (70-110); POTASSIUM 4.3 mmol/L (3.6-5.0); SODIUM 139 mmol/L (132-148); TOTAL PROTEIN 6.7 g/dL (5.8-8.3)
[2016-10-13] MEDS: Pantoprazole 40 mg EC Tab PO SCH (08:04)
--- NOTE | 2016-10-13 11:59 | CP.PCM.PN ---
<OlayinkaLogan murphy - Last Filed: 10/13/16 11:56> Subjective - Date & Time of Evaluation Date of Evaluation: 10/13/16 Time of Evaluation: 11:56 - Subjective Subjective: Patient has been seen and examined. Patient has no complaints. No overnight events reported. Denies any fever, chills, CP, SOB, abd, n/v/d, constipation, changes in urination or changes in bowel habits. Still reports suprapubic tenderness which has improved. Objective - Vital Signs/Intake and Output Vital Signs (last 24 hours): Temp Pulse Resp BP Pulse Ox 98 F 66 20 132/78 99 10/13/16 08:00 10/13/16 08:00 10/13/16 08:00 10/13/16 08:00 10/13/16 08:00 Intake and Output: 10/13/16 10/13/16 06:59 18:59 Intake Total 480 Output Total 500 Balance -20 - Medications Medications: Current Medications Acetaminophen (Tylenol 325mg Tab) 650 mg PO Q4H PRN PRN Reason: Pain, Mild (1-3) Enoxaparin Sodium (Lovenox) 30 mg SC DAILY [facility] PRN Reason: Protocol Last Admin: 10/11/16 17:27 Dose: 30 mg Sodium Chloride (Sodium Chloride 0.9%) 1,000 mls @ 100 mls/hr IV .Q10H [facility] Last Admin: 10/12/16 22:00 Dose: 100 mls/hr Morphine Sulfate (Morphine) 2 mg IVP Q4H PRN PRN Reason: Pain, severe (8-10) Ondansetron HCl (Zofran Inj) 4 mg IVP Q6H PRN PRN Reason: Nausea/Vomiting Pantoprazole Sodium (Protonix Ec Tab) 40 mg PO 0600 [facility] Last Admin: 10/13/16 08:04 Dose: Not Given - Labs Labs: 10/13/16 06:55 10/13/16 06:55 PT 11.0 Seconds (9.9-11.8) 10/09/16 20:30 INR 1.02 (0.93-1.08) 10/09/16 20:30 APTT 27.3 Seconds (23.7-30.8) 10/09/16 20:30 - Constitutional Appears: Non-toxic, Cachectic - Head Exam Head Exam: ATRAUMATIC, NORMOCEPHALIC - Eye Exam Eye Exam: EOMI, Normal appearance - ENT Exam ENT Exam: Mucous Membranes Moist - Respiratory Exam Respiratory Exam: Clear to Ausculation Bilateral, NORMAL BREATHING PATTERN. absent: Rales, Rhonchi, Wheezes - Cardiovascular Exam Cardiovascular Exam: RRR, +S1, +S2 - GI/Abdominal Exam GI & Abdominal Exam: Soft, Tenderness Additional comments: Suprapubic tenderness - Exam Additional comments: Inguinal lymphadenopathy - Extremities Exam Extremities Exam: Normal Capillary Refill. absent: Pedal Edema - Neurological Exam Neurological Exam: Alert, Awake, Oriented x3 - Skin Skin Exam: Dry, Intact, Warm Assessment and Plan - Assessment and Plan (Free Text) Assessment: 61 [place]ian M with PMH bladder cancer s/p laser resection (06/2016), admitted for gross hematuria 2/2 to bladder mass shown on CT. CT also showed hydronephrosis 2 /2 to bladder mass. Patient found to be anemic on admission, likely secondary to the gross hematuria. Plan: 1. Hematuria 2/2 likely uretero obstructing mass: - afebrile. no leukocytosis - Urine output 500mL over past 24 hours (made NPO after midnight) - UA on admission showed clear yellow urine, protein 100, large blood, rbc tntc , + nitrate and trace leuk esterase, few bacteria, neg bili, 2-5 wbcs. - Urine Cultures is negative - blood culture shows no growth after 48 hours - Normal Kidney function - CT chest did not show any pulmonary masses or lymph nodes - cystoscope today 2. Normocytic Anemia 2/2 to gross hematuria: - Likely 2/2 acute blood loss. - Iron studies show low iron and low iron Sat. - Hgb 9.3 today -Monitor Hgb. 3. Hx of bladder cancer: - Urology consulted, Dr. Woods planned Cystoscopy for this afternoon -NPO for cystoscopy today - Oncology consulted, Dr. Aldana Will discuss with Uro. Either will get PET scan results from old records or patient will need another PET scan. DVT PPX: SCDs GI PPX: Protonix Dispo: Contact for family is Mike Duarte (son) . He or daughter- in law would like to be contacted if there are any updates. Will continue morphine for pain control. Will attempt to obtain past PET scan results if there are any. <Yani Mcconnell - Last Filed: 10/13/16 14:23> Objective - Vital Signs/Intake and Output Vital Signs (last 24 hours): Temp Pulse Resp BP Pulse Ox 98 F 66 20 132/78 99 10/13/16 08:00 10/13/16 08:00 10/13/16 08:00 10/13/16 08:00 10/13/16 08:00 Intake and Output: 10/13/16 10/13/16 06:59 18:59 Intake Total 480 Output Total 500 Balance -20 - Medications Medications: Current Medications Acetaminophen (Tylenol 325mg Tab) 650 mg PO Q4H PRN PRN Reason: Pain, Mild (1-3) Enoxaparin Sodium (Lovenox) 30 mg SC DAILY [facility] PRN Reason: Protocol Last Admin: 10/11/16 17:27 Dose: 30 mg Sodium Chloride (Sodium Chloride 0.9%) 1,000 mls @ 100 mls/hr IV .Q10H [facility] Last Admin: 10/12/16 22:00 Dose: 100 mls/hr Morphine Sulfate (Morphine) 2 mg IVP Q4H PRN PRN Reason: Pain, severe (8-10) Ondansetron HCl (Zofran Inj) 4 mg IVP Q6H PRN PRN Reason: Nausea/Vomiting Pantoprazole Sodium (Protonix Ec Tab) 40 mg PO 0600 [facility] Last Admin: 10/13/16 08:04 Dose: Not Given - Labs Labs: 10/13/16 06:55 10/13/16 06:55 PT 11.0 Seconds (9.9-11.8) 10/09/16 20:30 INR 1.02 (0.93-1.08) 10/09/16 20:30 APTT 27.3 Seconds (23.7-30.8) 10/09/16 20:30 Attending/Attestation - Attestation I have personally seen and examined this patient.: Yes I have fully participated in the care of the patient.: Yes I have reviewed all pertinent clinical information, including history, physical exam and plan: Yes Notes (Text): 10/13/16 14:22 Attending note; Patient seen and examined with resident. Patient is a 61-year-old male is admitted with suprapubic pain. patient with a history of bladder cancer and did not receive any treatment yet. CT showed significant bladder mass and right hydronephrosis. CT chest Is negative for any pulmonary mass of lymphadenopathy. Oncology evaluation appreciated. Needs PET scan as outpatient. 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 nothing by mouth for cystoscopy today by Dr. Woods. Anemia; got 1 dose of IV iron. Cachexia; dietitian evaluation ordered. Patient needs close follow up with oncology/urological surgery as outpatient. 10/13/16 14:23
[2016-10-13] MEDS: Sodium Chloride 0.9% 1,000 ML IV SCH (19:02)
[2016-10-14] MEDS: Sodium Chloride 0.9% 1,000 ML IV SCH ×3 (05:52→20:40)
[2016-10-14] MEDS ORDERED: cefTRIAXone (Rocephin) 1 gm Inj ONE (07:39)
[2016-10-14] MEDS ORDERED: Lactated Ringer's 1,000 ML IV SCH (08:01)
[2016-10-14] MEDS ORDERED: HYDROmorphone 0.5 mg/0.5 ml ISec IVP PRN (08:01)
[2016-10-14] MEDS ORDERED: Propofol 10 mg/ml Inj (20 ML) ONE (08:09)
[2016-10-14] MEDS ORDERED: Midazolam 2 MG/2 ML VIAL ONE (08:10)
[2016-10-14] MEDS: Morphine 2 mg/ml ISec IVP PRN (11:31)
--- NOTE | 2016-10-14 12:29 | CP.PCM.PN ---
<Logan Henriquez - Last Filed: 10/14/16 12:26> Subjective - Date & Time of Evaluation Date of Evaluation: 10/14/16 Time of Evaluation: 12:26 - Subjective Subjective: Patient has been seen and examined. He is s/p cystoscope. He reports no fevers chills, headache, lightheadedness. Does complain of suprapubic tenderness (s/p procedure). Denies any changes in bowel habits. Objective - Vital Signs/Intake and Output Vital Signs (last 24 hours): Temp Pulse Resp BP Pulse Ox 97.6 F 68 20 160/89 H 100 10/14/16 09:33 10/14/16 09:33 10/14/16 09:33 10/14/16 09:33 10/14/16 09:33 Intake and Output: 10/14/16 10/14/16 06:59 18:59 Intake Total 2460 1000 Output Total 2 Balance 2458 1000 - Medications Medications: Current Medications Acetaminophen (Tylenol 325mg Tab) 650 mg PO Q4H PRN PRN Reason: Pain, Mild (1-3) Sodium Chloride (Sodium Chloride 0.9%) 1,000 mls @ 100 mls/hr IV .Q10H [facility] Last Admin: 10/14/16 11:30 Dose: 100 mls/hr Morphine Sulfate (Morphine) 2 mg IVP Q4H PRN PRN Reason: Pain, severe (8-10) Last Admin: 10/14/16 11:31 Dose: 2 mg Ondansetron HCl (Zofran Inj) 4 mg IVP Q6H PRN PRN Reason: Nausea/Vomiting Pantoprazole Sodium (Protonix Ec Tab) 40 mg PO 0600 [facility] Last Admin: 10/13/16 08:04 Dose: Not Given - Labs Labs: 10/13/16 06:55 10/13/16 06:55 PT 11.0 Seconds (9.9-11.8) 10/09/16 20:30 INR 1.02 (0.93-1.08) 10/09/16 20:30 APTT 27.3 Seconds (23.7-30.8) 10/09/16 20:30 - Constitutional Appears: No Acute Distress, Cachectic - Head Exam Head Exam: ATRAUMATIC, NORMAL INSPECTION, NORMOCEPHALIC - Eye Exam Eye Exam: EOMI, Normal appearance - ENT Exam ENT Exam: Mucous Membranes Moist - Respiratory Exam Respiratory Exam: Clear to Ausculation Bilateral. absent: Rales, Rhonchi, Wheezes - Cardiovascular Exam Cardiovascular Exam: +S1, +S2. absent: Murmur - GI/Abdominal Exam GI & Abdominal Exam: Soft, Normal Bowel Sounds Additional comments: Suprapubic tenderness - Exam Additional comments: Alas Catheter - Extremities Exam Extremities Exam: absent: Pedal Edema - Neurological Exam Neurological Exam: Alert, Awake, Oriented x3 - Psychiatric Exam Psychiatric exam: Normal Affect, Normal Mood - Skin Skin Exam: Dry, Intact Assessment and Plan - Assessment and Plan (Free Text) Assessment: 61 Sinhala M with PMH bladder cancer s/p laser resection (06/2016), admitted for gross hematuria 2/2 to bladder mass shown on CT. CT also showed hydronephrosis 2 /2 to bladder mass. Patient found to be anemic on admission, likely secondary to the gross hematuria. Plan: 1. Hematuria 2/2 likely uretero obstructing mass: - afebrile. no leukocytosis - Urine output 1000mL - UA on admission showed clear yellow urine, protein 100, large blood, rbc tntc , + nitrate and trace leuk esterase, few bacteria, neg bili, 2-5 wbcs. - Urine Cultures is negative - blood culture shows no growth after 4 days - Normal Kidney function - CT chest did not show any pulmonary masses or lymph nodes - cystoscope today. Has alas catheter placed post cystoscope. Will dC alas tomorrow and probably DC to home. 2. Normocytic Anemia 2/2 to gross hematuria: - Likely 2/2 acute blood loss. -Received Supp Iron yesterday. - Iron studies show low iron and low iron Sat. -Monitor Hgb. 3. Hx of high grade transitional cell carcinoma: - Urology consulted, Dr. Woods, recs appreciated had Cystoscopy this morning. - Oncology consulted, Dr. Aldana Will discuss with Urology further mangament. Patient needs PET scan. - [facility] in [place], [place] called yesterday. Faxed request for any pet scan records. NO records have been returned. DVT PPX: SCDs GI PPX: Protonix Dispo: Contact for family is Mike Duarte (son) . He or daughter- in law would like to be contacted if there are any updates. Will continue morphine for pain control. Will attempt to obtain past PET scan results if there are any. Will DC alas tomorrow per Uro and then possible discharge per Uro. Patient seen, discussed, and reviewed with Attending. Logan Henriquez PGY1 <Yani Mcconnell - Last Filed: 10/14/16 14:28> Objective - Vital Signs/Intake and Output Vital Signs (last 24 hours): Temp Pulse Resp BP Pulse Ox 97.6 F 68 20 160/89 H 100 10/14/16 09:33 10/14/16 09:33 10/14/16 09:33 10/14/16 09:33 10/14/16 09:33 Intake and Output: 10/14/16 10/14/16 06:59 18:59 Intake Total 2460 1000 Output Total 2 Balance 2458 1000 - Medications Medications: Current Medications Acetaminophen (Tylenol 325mg Tab) 650 mg PO Q4H PRN PRN Reason: Pain, Mild (1-3) Sodium Chloride (Sodium Chloride 0.9%) 1,000 mls @ 100 mls/hr IV .Q10H [facility] Last Admin: 10/14/16 11:30 Dose: 100 mls/hr Morphine Sulfate (Morphine) 2 mg IVP Q4H PRN PRN Reason: Pain, severe (8-10) Last Admin: 10/14/16 11:31 Dose: 2 mg Ondansetron HCl (Zofran Inj) 4 mg IVP Q6H PRN PRN Reason: Nausea/Vomiting Pantoprazole Sodium (Protonix Ec Tab) 40 mg PO 0600 [facility] Last Admin: 10/13/16 08:04 Dose: Not Given - Labs Labs: 10/13/16 06:55 10/13/16 06:55 PT 11.0 Seconds (9.9-11.8) 10/09/16 20:30 INR 1.02 (0.93-1.08) 10/09/16 20:30 APTT 27.3 Seconds (23.7-30.8) 10/09/16 20:30 Attending/Attestation - Attestation I have personally seen and examined this patient.: Yes I have fully participated in the care of the patient.: Yes I have reviewed all pertinent clinical information, including history, physical exam and plan: Yes Notes (Text): 10/14/16 14:25 Attending note; Patient seen and examined with resident. Patient is a 61-year-old male is admitted with suprapubic pain. patient with a history of bladder cancer and did not receive any treatment yet. CT showed significant bladder mass and right hydronephrosis. CT chest Is negative for any pulmonary mass of lymphadenopathy. status post cystoscopy today. Alas catheter with orange urine. case discussed with urology in detail. Status post bladder tumor resection. discontinue Alas tomorrow if hematuria clears. Possible discharge home and close follow-up with urology as outpatient. Oncology evaluation appreciated. Needs PET scan as outpatient. anemia:stable. Cachexia; dietitian evaluation appreciated. Patient needs close follow up with oncology/urological surgery as outpatient
--- NOTE | 2016-10-14 19:32 | OP ---
PROCEDURE DATE: 10/14/2016 PREOPERATIVE DIAGNOSES: Gross hematuria and bladder mass. POSTOPERATIVE DIAGNOSES: Gross hematuria and bladder mass. PROCEDURE: TURBT. SURGEON: Levi Woods MD COMPLICATIONS: There were no complications. ESTIMATED BLOOD LOSS: Less than 25 mL SPECIMEN: Bladder cancer. FINDINGS: Normal anterior urethra. No strictures minimally visualized, it fairly open and short for a man of his age, about 2 cm, and relatively open. Within the urinary bladder there is a gigantic mass along the right side, tremendous amount. I could never identify the ureteral orifice. DETERMINATION OF THE PROCEDURE: There is still visible tumor. What I did was resected tumor to get as deep as possible. Pictures were taken but apparently not captured. A good amount of specimen was taken and saved, sent to the lab for pathology evaluation. After determination that we could not cauterize all the bleeding, we inserted a Richardson catheter via the urethra. There were no complication. Exam of anesthesia also revealed no fixed bladder masses. The bladder feels mobile, although it is difficult to evaluate in this setting. He is fairly thin man, but it is still difficult to evaluate. it does not feel that on the right side that the bladder is attached. INDICATIONS: See history and physical and consultation. See CT scan. See multiple imaging. The patient is 61 years old. He has been diagnosed with bladder cancer elsewhere. He has been told that he should have surgical resection. He is here now because he is bleeding again. He was trying to see if there are other options available. I discussed with them some of those options. They want a reevaluation completely indicating for the above procedures. DESCRIPTION OF PROCEDURE: After obtaining informed consent, the patient was placed on the table. Routine monitor was placed. Time-out was called to confirm the patient's positioning, etc. Antibiotic prophylaxis, etc., are given. We introduced the cystoscope with the visual obturator 2 cm. Now the bladder was inspected. I cannot see the ureteral orifice. I see a large mass. Pictures were taken, but (not saved), apparently not captured. We now began resecting. We introduced the resectoscope. We set the cautery settings 180 and 60. We began resecting slowly shortly carefully and gently. There is just a large amount of tumor. Anywhere we saw bleeding we cauterized. We fulgurated. We then irrigated out all the pieces of tissue, plied out about 5 to 6 g of tissue. As mentioned I did not ever see the ureteral orifice, but I do not think I am that deep. The patient tolerated as we inserted Richardson catheter via urethra without difficulty. The patient tolerated without complications. Levi Woods MD
[2016-10-14] MEDS: Pantoprazole 40 mg EC Tab PO SCH (20:45)
--- NOTE | 2016-10-15 03:05 | PN ---
DATE: 10/14/2016 This is [facility] visit on the medical floor. For Dr. Aldana, SUBJECTIVE: The patient is a 61-year-old male seen lying awake in bed with no complaints at this point. His hematuria is controlled now, status post TUR as per Dr. Woods earlier today with a Richardson in-situ. There is report that with the patient possibly discharged to home tomorrow after discontinuation of Richardson that he will followup as per Dr. Mcconnell in our office as the family has requested followup here rather than in [place], [place] where he was seen originally. He is otherwise in no acute distress. PHYSICAL EXAMINATION VITAL SIGNS: Temperature 97.6, pulse 68, respirations 20, blood pressure 160/89, and pulse ox 100%. HEENT: Unremarkable. NECK: Supple. HEART: Regular rate. LUNGS: Clear. ABDOMEN: Soft to the suprapubic area, post procedure earlier today. EXTREMITIES: No edema. SKIN: Warm and dry. NEUROLOGIC: Awake, alert, and oriented. LABORATORY DATA: The patient's labs were done to include a white blood cell count of 7.2, hemoglobin 9.3, hematocrit of 29.2, and platelet count of 377,000 with a chem metabolic panel within normal limits today. ASSESSMENT: For this patient is that of urothelial carcinoma high grade, papilla involving muscularis propria, hydroureteronephrosis obstructing on the right side, suprapubic pain secondary to above, cachexia, malignancy, anemia secondary to hematuria, failure to thrive. PLAN: I had a conversation with Dr. Aldana. To continue his present medical regimen as per his attending and Dr. Woods, his urologist with the patient given a prescription for a PET CT scan. We recommended followup after discharge with Dr. Aldana in the office within one week's time or earlier for treatment possibly with Tecentriq, for which the treatment would be 1200 mg IV q. 3 weeks for bladder cancer if the patient would be a candidate for this treatment if his insurance company would allow it. With this patient's followup will be in one week in Dr. Aldana's office should the patient be discharged home tomorrow as is the plan. Prognosis for this patient is guarded. Jeevan MD [facility] # [id number]
[2016-10-15] MEDS: Pantoprazole 40 mg EC Tab PO SCH (06:16)
[2016-10-15] MEDS: Sodium Chloride 0.9% 1,000 ML IV SCH ×2 (06:48→20:20)
[2016-10-15 07:19] LABS: BASO # 0.02 K/mm3 (0.0-2.0); BASO % 0.2 % (0.0-3.0); EOS # 0.1 (0.0-0.7); GRAN # 7.01 (1.4-6.5); GRAN % 76.2 % (50.0-68.0); HEMATOCRIT 26.9 % (42.0-52.0); LYMPH # 1.3 (1.2-3.4); LYMPH % 14.1 % (22.0-35.0); MEAN CELL VOLUME 88.5 fl (80.0-105.0); MEAN CORPUSCULAR HEMOGLOBIN 28.9 pg (25.0-35.0); MEAN CORPUSCULAR HGB CONC 32.7 g/dl (31.0-37.0); MEAN PLATELET VOLUME 8.9 fl (7.0-11.0); MONO # 0.8 (0.1-0.6); MONO % 8.5 % (1.0-6.0); RED CELL DISTRIBUTION WIDTH 14.8 % (11.5-14.5); WHITE BLOOD COUNT 9.2 10^3/ul (4.5-11.0)
[2016-10-15 07:27] LABS: ALB/GLOB RATIO 1.1 (1.1-1.8); ALKALINE PHOSPHATASE 84 U/L (38-126); ALT/SGPT 52 U/L (7-56); AST/SGOT 67 U/L (17-59); BILIRUBIN,TOTAL 0.2 mg/dL (0.2-1.3); BLOOD UREA NITROGEN 17 mg/dL (7-21); CALCIUM 8.7 mg/dL (8.4-10.5); CARBON DIOXIDE 28 mmol/L (21-33); CHLORIDE 102 mmol/L (98-107); GFR AFRICAN-AMERICAN > 60; GLUCOSE,RANDOM 96 mg/dL (70-110); SODIUM 137 mmol/L (132-148); TOTAL PROTEIN 6.5 g/dL (5.8-8.3)
--- NOTE | 2016-10-15 19:14 | CP.PCM.PN ---
<OlayinkaLogan murphy - Last Filed: 10/15/16 20:33> Subjective - Date & Time of Evaluation Date of Evaluation: 10/15/16 Time of Evaluation: 19:12 - Subjective Subjective: Patient has been seen and examined. He is s/p cystoscope. He reports no fevers chills, headache, lightheadedness. Does complain of suprapubic tenderness that has improved. Denies any changes in bowel habits. Objective - Vital Signs/Intake and Output Vital Signs (last 24 hours): Temp Pulse Resp BP Pulse Ox 97.8 F 65 18 124/79 98 10/15/16 16:43 10/15/16 16:43 10/15/16 16:43 10/15/16 16:43 10/15/16 16:00 Intake and Output: 10/15/16 10/16/16 18:59 06:59 Intake Total 1725 Output Total 1450 Balance 275 - Medications Medications: Current Medications Acetaminophen (Tylenol 325mg Tab) 650 mg PO Q4H PRN PRN Reason: Pain, Mild (1-3) Sodium Chloride (Sodium Chloride 0.9%) 1,000 mls @ 100 mls/hr IV .Q10H [facility] Last Admin: 10/15/16 06:48 Dose: 100 mls/hr Morphine Sulfate (Morphine) 2 mg IVP Q4H PRN PRN Reason: Pain, severe (8-10) Last Admin: 10/14/16 11:31 Dose: 2 mg Ondansetron HCl (Zofran Inj) 4 mg IVP Q6H PRN PRN Reason: Nausea/Vomiting Pantoprazole Sodium (Protonix Ec Tab) 40 mg PO 0600 [facility] Last Admin: 10/15/16 06:16 Dose: 40 mg - Labs Labs: 10/15/16 06:15 10/15/16 06:15 PT 11.0 Seconds (9.9-11.8) 10/09/16 20:30 INR 1.02 (0.93-1.08) 10/09/16 20:30 APTT 27.3 Seconds (23.7-30.8) 10/09/16 20:30 - Constitutional Appears: No Acute Distress, Cachectic - Head Exam Head Exam: ATRAUMATIC, NORMAL INSPECTION, NORMOCEPHALIC - Eye Exam Eye Exam: EOMI, Normal appearance. absent: Scleral icterus - ENT Exam ENT Exam: Mucous Membranes Moist - Respiratory Exam Respiratory Exam: Clear to Ausculation Bilateral, NORMAL BREATHING PATTERN. absent: Rales, Rhonchi, Wheezes, Stridor - Cardiovascular Exam Cardiovascular Exam: +S1, +S2. absent: Murmur - GI/Abdominal Exam GI & Abdominal Exam: Soft, Normal Bowel Sounds. absent: Organomegaly Additional comments: suprapubic tenderness - Extremities Exam Extremities Exam: absent: Pedal Edema - Back Exam Back Exam: absent: CVA tenderness (L), CVA tenderness (R) - Neurological Exam Neurological Exam: Alert, Awake, Oriented x3 - Psychiatric Exam Psychiatric exam: Normal Affect, Normal Mood Assessment and Plan - Assessment and Plan (Free Text) Assessment: 61 [place] M with PMH bladder cancer s/p laser resection (06/2016), admitted for gross hematuria 2/2 to bladder mass shown on CT. CT also showed hydronephrosis 2 /2 to bladder mass. Patient found to be anemic on admission, likely secondary to the gross hematuria. Plan: 1. Hematuria 2/2 likely uretero obstructing mass: - afebrile. no leukocytosis - Urine output 1450 today (pink colored) - UA on admission showed clear yellow urine, protein 100, large blood, rbc tntc , + nitrate and trace leuk esterase, few bacteria, neg bili, 2-5 wbcs. - Urine Cultures is negative - blood culture shows no growth after 4 days - Normal Kidney function - CT chest did not show any pulmonary masses or lymph nodes - cystoscope today. Has alas catheter placed post cystoscope. Will dC alas tomorrow and DC to home. 2. Normocytic Anemia 2/2 to gross hematuria: - Likely 2/2 acute blood loss. -Received Supp Iron yesterday. - Iron studies show low iron and low iron Sat. -2 units PRBCs today per Onco 3. Hx of high grade transitional cell carcinoma: - Urology consulted, michael Camargo appreciated - had Cystoscopy this yesterday. Biopsy results by tomorrow. - Oncology consulted, Dr. Aldana Will discuss with Urology further mangament. Patient will get PET scan on outpatient basis - [facility] in [place], [place] called on (10/13). Faxed request for any pet scan records. NO PET scan records have been returned. DVT PPX: SCDs GI PPX: Protonix Dispo: Contact for family is Mike Duarte (son) . He or daughter- in law would like to be contacted if there are any updates. Will continue morphine for pain control. Will DC alas tomorrow morning per Uro and then discharge. Patient stayed once extra day because of blood transfusion. Patient seen, discussed, and reviewed with Attending. Logan Henriquez PGY1 <Rocco Contreras B - Last Filed: 10/16/16 18:19> Objective - Vital Signs/Intake and Output Vital Signs (last 24 hours): Temp Pulse Resp BP Pulse Ox 97.6 F 70 22 181/99 H 99 10/16/16 12:03 10/16/16 12:03 10/16/16 12:03 10/16/16 12:03 10/16/16 12:03 Intake and Output: 10/16/16 10/16/16 06:59 18:59 Intake Total 1790 760 Output Total 3050 Balance -1260 760 - Medications Medications: Current Medications Acetaminophen (Tylenol 325mg Tab) 650 mg PO Q4H PRN PRN Reason: Pain, Mild (1-3) Aminocaproic Acid (Aminocaproic Acid 500 Mg Tab) 1,000 mg PO Q8 [facility] Cyproheptadine HCl (Periactin) 4 mg PO DAILY [facility] Last Admin: 10/16/16 09:38 Dose: 4 mg Hydromorphone HCl (Dilaudid) 1 mg IVP Q4H PRN PRN Reason: Pain, severe (8-10) Last Admin: 10/16/16 14:06 Dose: 1 mg Sodium Chloride (Sodium Chloride 0.9%) 1,000 mls @ 100 mls/hr IV .Q10H [facility] Last Admin: 10/16/16 09:38 Dose: 100 mls/hr Ondansetron HCl (Zofran Inj) 4 mg IVP Q6H PRN PRN Reason: Nausea/Vomiting Last Admin: 10/16/16 14:06 Dose: 4 mg Pantoprazole Sodium (Protonix Ec Tab) 40 mg PO 0600 [facility] Last Admin: 10/16/16 05:31 Dose: 40 mg - Labs Labs: 10/16/16 07:00 10/16/16 07:00 PT 11.0 Seconds (9.9-11.8) 10/09/16 20:30 INR 1.02 (0.93-1.08) 10/09/16 20:30 APTT 27.3 Seconds (23.7-30.8) 10/09/16 20:30 Attending/Attestation - Attestation I have personally seen and examined this patient.: Yes I have fully participated in the care of the patient.: Yes I have reviewed all pertinent clinical information, including history, physical exam and plan: Yes Notes (Text): I have seen and examined the patient at bedside. Agree with the above note with the following additions/ exceptions: Briefly this is 61 year old male with history of bladder cancer s/p resection who presented with gross hematuria secondary to bladder mass who underwent TURBT today. Patient has high grade invasive TCC. He has hematuria. Discussed with oncology team. Plan to transfuse 2 units of prbc. Will keep the patient overnight. Plan to discontinue alas in am. Upon discharge patient will follow up with Dr Lau and needs outpatient PET scan. Dr Rocco Contreras
--- NOTE | 2016-10-16 00:55 | PN ---
DATE: 10/15/2016 This is [facility] visit on the medical floor. For Dr. Aldana. 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 The patient is known to have urothelial high-grade carcinoma, involving the muscularis propria with hydronephrosis status post TUR by Dr. Woods yesterday with Richardson catheter still in-situ now draining rita urine with hematuria somewhat cleared up. His hemoglobin unfortunately had dropped to 8.8 status post procedure with transfusions of 2 units of packed red blood cells to be done earlier today. He is in no acute distress; however, reports significant lack of appetite. PHYSICAL EXAMINATION: GENERAL: He appears cachectic. VITAL SIGNS: Temperature 97.8, pulse 55, respirations 18, blood pressure 124/79 and pulse ox 98%. HEENT: Sunken temples. NECK: Supple. HEART: Regular rate. LUNGS: Clear. ABDOMEN: Soft, scaphoid and nontender. EXTREMITIES: No edema. SKIN: Warm and dry. NEUROLOGIC: Awake and alert. LABORATORY DATA: The patient's labs were done. White blood cell count 9.2, hemoglobin 8.8, hematocrit 26.9 and platelet count 381,000. A chem metabolic panel completely within normal range with an AST of 67. He had a CEA value of 1.4, with an otherwise normal chem metabolic panel. ASSESSMENT: Hematuria secondary to urothelial high-grade carcinoma, involving the muscularis propria with hydronephrosis, obstructing right side suprapubic pain, cachexia malignancy, anemia secondary to hematuria, failure to thrive. PLAN: After conversation with Dr. Aldana, we plan for this patient to continue present medical regimen with consideration for treatment with Tecentriq. As per Dr. Aldana's recommendation, insurance coverage. We will also ask for PET CT scan to be done with Periactin once a day to be tried to see if this will stimulate his appetite with consideration for Megace as an outpatient in future. Follow up with this patient would be in the office in one week time or earlier. He used to get transfuse 2 units of packed red blood cells today as per Dr. Aldana's recommendation. Jeevan MD [facility] # [id number]
[2016-10-16] MEDS: Pantoprazole 40 mg EC Tab PO SCH (05:31)
[2016-10-16 07:13] LABS: BASO # 0.01 K/mm3 (0.0-2.0); BASO % 0.1 % (0.0-3.0); EOS # 0.1 (0.0-0.7); EOS % 1.2 % (1.5-5.0); GRAN # 7.89 (1.4-6.5); GRAN % 73.7 % (50.0-68.0); HEMATOCRIT 32.8 % (42.0-52.0); LYMPH # 1.8 (1.2-3.4); LYMPH % 16.5 % (22.0-35.0); MEAN CELL VOLUME 86.8 fl (80.0-105.0); MEAN CORPUSCULAR HEMOGLOBIN 28.6 pg (25.0-35.0); MEAN CORPUSCULAR HGB CONC 32.9 g/dl (31.0-37.0); MEAN PLATELET VOLUME 9.1 fl (7.0-11.0); MONO # 0.9 (0.1-0.6); MONO % 8.5 % (1.0-6.0); RED CELL DISTRIBUTION WIDTH 15.4 % (11.5-14.5); WHITE BLOOD COUNT 10.7 10^3/ul (4.5-11.0)
[2016-10-16 07:27] LABS: ALKALINE PHOSPHATASE 84 U/L (38-126); ALT/SGPT 53 U/L (7-56); AST/SGOT 44 U/L (17-59); BILIRUBIN,TOTAL 0.6 mg/dL (0.2-1.3); BLOOD UREA NITROGEN 29 mg/dL (7-21); CALCIUM 8.5 mg/dL (8.4-10.5); CARBON DIOXIDE 29 mmol/L (21-33); CHLORIDE 100 mmol/L (95-110); GFR AFRICAN-AMERICAN > 60; GLUCOSE,RANDOM 94 mg/dL (70-110); POTASSIUM 3.1 mmol/L (3.6-5.0); SODIUM 138 mmol/L (132-148); TOTAL PROTEIN 6.5 g/dL (5.8-8.3)
--- NOTE | 2016-10-16 08:45 | PCM.URO ---
Urology Progress Note - Subjective Hematuria: Yes - Objective Lab Studies: Reviewed (gu plans: pathology shows high grade muscle invasive tcc further plans are out pt management // recommend cystectomy but other options available) Lab Results Last 24 Hours: Laboratory Results - last 24 hr 10/15/16 10/15/16 10/16/16 11:08 12:45 07:00 WBC 10.7 RBC 3.78 Hgb 10.8 L D Hct 32.8 L MCV 86.8 MCH 28.6 MCHC 32.9 RDW 15.4 H Plt Count 395 MPV 9.1 Gran % 73.7 H Lymph % (Auto) 16.5 L Stevens % (Auto) 8.5 H Eos % (Auto) 1.2 L Baso % (Auto) 0.1 Gran # 7.89 H Lymph # 1.8 Stevens # 0.9 H Eos # 0.1 Baso # 0.01 Sodium Potassium Chloride Carbon Dioxide Anion Gap BUN Creatinine Est GFR ( Amer) Est GFR (Non-Af Amer) Random Glucose Calcium Total Bilirubin AST ALT Alkaline Phosphatase Total Protein Albumin Globulin Albumin/Globulin Ratio Blood Type AB POSITIVE Blood Type Confirm AB POSITIVE Antibody Screen Negative Crossmatch See Detail BBK History Checked No verified bt 10/16/16 07:00 WBC RBC Hgb Hct MCV MCH MCHC RDW Plt Count MPV Gran % Lymph % (Auto) Stevens % (Auto) Eos % (Auto) Baso % (Auto) Gran # Lymph # Stevens # Eos # Baso # Sodium 138 Potassium 3.1 L Chloride 100 Carbon Dioxide 29 Anion Gap 12 BUN 29 H Creatinine 0.8 Est GFR ( Amer) > 60 Est GFR (Non-Af Amer) > 60 Random Glucose 94 Calcium 8.5 Total Bilirubin 0.6 AST 44 ALT 53 Alkaline Phosphatase 84 Total Protein 6.5 Albumin 3.2 Globulin 3.3 Albumin/Globulin Ratio 1.0 L Blood Type Blood Type Confirm Antibody Screen Crossmatch BBK History Checked Intake & Output: Intake & Output 10/15/16 10/16/16 10/16/16 18:59 06:59 18:59 Intake Total 1725 1790 Output Total 1450 3050 Balance 275 -1260 Intake: Oral 1360 1740 Blood Product 320 0 Red Blood Cells Cpd As1 320 Lr Unit [id number] Red Blood Cells Cpd As1 0 Lr Unit [id number] Other 45 50 Red Blood Cells Cpd As1 45 Lr Unit [id number] Red Blood Cells Cpd As1 50 Lr Unit [id number] Output: Urine 1450 3050 Urine, Voided 1450 3050 Other: # Bowel Movements 1 2 Vital Signs: Vital Signs - 24 hr 10/15/16 10/15/16 10/15/16 15:41 15:58 16:00 Temperature 98.0 F 98.2 F 98.2 F Pulse Rate 76 69 68 Respiratory 18 20 20 Rate Blood Pressure 125/79 119/79 125/82 O2 Sat by Pulse 98 Oximetry 10/15/16 10/15/16 10/15/16 16:43 21:20 21:30 Temperature 97.8 F 97.9 F 97.7 F Pulse Rate 65 66 66 Respiratory 18 20 20 Rate Blood Pressure 124/79 125/83 125/83 O2 Sat by Pulse Oximetry 10/15/16 10/15/16 10/16/16 21:45 22:30 00:40 Temperature 97.8 F 97.9 F 98.4 F Pulse Rate 71 64 63 Respiratory 20 20 17 Rate Blood Pressure 126/83 131/79 124/79 O2 Sat by Pulse Oximetry 10/16/16 10/16/16 00:50 08:00 Temperature 98.4 F 98.0 F Pulse Rate 63 69 Respiratory 17 17 Rate Blood Pressure 129/79 133/86 O2 Sat by Pulse 96 98 Oximetry
[2016-10-16] MEDS: Sodium Chloride 0.9% 1,000 ML IV SCH (09:38)
[2016-10-16] MEDS ORDERED: Potassium Chloride 20 mEq ER Tab PO ONE ×2 (09:41→12:00)
[2016-10-16] MEDS: Morphine 2 mg/ml ISec IVP PRN (10:44)
[2016-10-16] MEDS ORDERED: Morphine 2 mg/ml ISec IVP STA (12:03)
[2016-10-16] MEDS: HYDROmorphone 1 mg/ml ISec IVP PRN (14:06)
--- NOTE | 2016-10-16 17:36 | CP.PCM.PN ---
<Logan Henriquez - Last Filed: 10/16/16 17:31> Subjective - Date & Time of Evaluation Date of Evaluation: 10/16/16 Time of Evaluation: 17:36 - Subjective Subjective: Patient has been seen and examined. He reports no fevers chills, headache, and lightheadedness. He states that his suprapubic tenderness, dysuria, and urinary frequency have worsened. Also reports increasing blood in urine. He denies any headache, fever, chills, SOB, CP, quadrant associated abdominal pain, or changes in bowel habits. Objective - Vital Signs/Intake and Output Vital Signs (last 24 hours): Temp Pulse Resp BP Pulse Ox 97.6 F 70 22 181/99 H 99 10/16/16 12:03 10/16/16 12:03 10/16/16 12:03 10/16/16 12:03 10/16/16 12:03 Intake and Output: 10/16/16 10/16/16 06:59 18:59 Intake Total 1790 760 Output Total 3050 Balance -1260 760 - Medications Medications: Current Medications Acetaminophen (Tylenol 325mg Tab) 650 mg PO Q4H PRN PRN Reason: Pain, Mild (1-3) Cyproheptadine HCl (Periactin) 4 mg PO DAILY [facility] Last Admin: 10/16/16 09:38 Dose: 4 mg Hydromorphone HCl (Dilaudid) 1 mg IVP Q4H PRN PRN Reason: Pain, severe (8-10) Last Admin: 10/16/16 14:06 Dose: 1 mg Sodium Chloride (Sodium Chloride 0.9%) 1,000 mls @ 100 mls/hr IV .Q10H [facility] Last Admin: 10/16/16 09:38 Dose: 100 mls/hr Ondansetron HCl (Zofran Inj) 4 mg IVP Q6H PRN PRN Reason: Nausea/Vomiting Last Admin: 10/16/16 14:06 Dose: 4 mg Pantoprazole Sodium (Protonix Ec Tab) 40 mg PO 0600 [facility] Last Admin: 10/16/16 05:31 Dose: 40 mg - Labs Labs: 10/16/16 07:00 10/16/16 07:00 PT 11.0 Seconds (9.9-11.8) 10/09/16 20:30 INR 1.02 (0.93-1.08) 10/09/16 20:30 APTT 27.3 Seconds (23.7-30.8) 10/09/16 20:30 - Constitutional Appears: Non-toxic, Cachectic - Head Exam Head Exam: ATRAUMATIC, NORMOCEPHALIC - Eye Exam Eye Exam: EOMI, Normal appearance - ENT Exam ENT Exam: Mucous Membranes Moist - Respiratory Exam Respiratory Exam: Clear to Ausculation Bilateral. absent: Rales, Rhonchi, Wheezes - Cardiovascular Exam Cardiovascular Exam: RRR, +S1, +S2 - GI/Abdominal Exam GI & Abdominal Exam: Soft Additional comments: Suprapubic tenderness - Neurological Exam Neurological Exam: Alert, Awake, Oriented x3 - Psychiatric Exam Psychiatric exam: Normal Affect, Normal Mood - Skin Skin Exam: Dry, Intact, Warm Assessment and Plan - Assessment and Plan (Free Text) Assessment: 61 [place] M with PMH bladder cancer s/p laser resection (06/2016), admitted for gross hematuria 2/2 to bladder mass shown on CT. CT also showed hydronephrosis 2 /2 to bladder mass. Patient found to be anemic on admission, likely secondary to the gross hematuria. Plan: 1. Hematuria 2/2 likely uretero obstructing mass: - afebrile. no leukocytosis - Urine output 1450 today (pink colored) - UA on admission showed clear yellow urine, protein 100, large blood, rbc tntc , + nitrate and trace leuk esterase, few bacteria, neg bili, 2-5 wbcs. - Urine Cultures is negative - blood culture shows no growth after 4 days - Normal Kidney function - CT chest did not show any pulmonary masses or lymph nodes - cystoscope today. Has alas catheter placed post cystoscope. -Will start CBI w/ Aminocaproic Acid. Surgery resident will place the follow. 2. Normocytic Anemia 2/2 to gross hematuria: - Likely 2/2 acute blood loss. - Iron studies show low iron and low iron Sat. -Hgb 10.7 s/p 2 units PRBCs today per Onco 3. Hx of high grade transitional cell carcinoma: - Urology consulted, Dr. Woods, recs appreciated - had Cystoscopy this yesterday. Biopsy results by tomorrow. - Oncology consulted, Dr. Aldana Will discuss with Urology further mangament. Patient will get PET scan on outpatient basis - [facility] in [place], [place] called on (10/13). Faxed request for any pet scan records. NO PET scan records have been returned. DVT PPX: SCDs GI PPX: Protonix Dispo: Contact for family is Mike Duarte (son) . He or daughter- in law would like to be contacted if there are any updates. Will continue morphine for pain control. Patient had increasing hematuria, so we will monitor more before D?C, and start Aminocaproic Acid w/ CBI. Patient seen, discussed, and reviewed with Attending. Logan Henriquez PGY1 <Rocco Contreras - Last Filed: 10/16/16 18:23> Objective - Vital Signs/Intake and Output Vital Signs (last 24 hours): Temp Pulse Resp BP Pulse Ox 97.6 F 70 22 181/99 H 99 10/16/16 12:03 10/16/16 12:03 10/16/16 12:03 10/16/16 12:03 10/16/16 12:03 Intake and Output: 10/16/16 10/16/16 06:59 18:59 Intake Total 1790 760 Output Total 3050 Balance -1260 760 - Medications Medications: Current Medications Acetaminophen (Tylenol 325mg Tab) 650 mg PO Q4H PRN PRN Reason: Pain, Mild (1-3) Aminocaproic Acid (Aminocaproic Acid 500 Mg Tab) 1,000 mg PO Q8 [facility] Cyproheptadine HCl (Periactin) 4 mg PO DAILY [facility] Last Admin: 10/16/16 09:38 Dose: 4 mg Hydromorphone HCl (Dilaudid) 1 mg IVP Q4H PRN PRN Reason: Pain, severe (8-10) Last Admin: 10/16/16 14:06 Dose: 1 mg Sodium Chloride (Sodium Chloride 0.9%) 1,000 mls @ 100 mls/hr IV .Q10H [facility] Last Admin: 10/16/16 09:38 Dose: 100 mls/hr Ondansetron HCl (Zofran Inj) 4 mg IVP Q6H PRN PRN Reason: Nausea/Vomiting Last Admin: 10/16/16 14:06 Dose: 4 mg Pantoprazole Sodium (Protonix Ec Tab) 40 mg PO 0600 [facility] Last Admin: 10/16/16 05:31 Dose: 40 mg - Labs Labs: 10/16/16 07:00 10/16/16 07:00 PT 11.0 Seconds (9.9-11.8) 10/09/16 20:30 INR 1.02 (0.93-1.08) 10/09/16 20:30 APTT 27.3 Seconds (23.7-30.8) 10/09/16 20:30 Attending/Attestation - Attestation I have personally seen and examined this patient.: Yes I have fully participated in the care of the patient.: Yes I have reviewed all pertinent clinical information, including history, physical exam and plan: Yes Notes (Text): I have seen and examined the patient at bedside. Agree with the above note with the following additions/ exceptions: Briefly this is 61 year old male with history of bladder cancer s/p resection who presented with gross hematuria secondary to bladder mass who underwent TURBT . Patient has high grade invasive TCC. Alas was discontinued this morning. He has gross hematuria and has been complaining of dysuria and has suprapubic tenderness. Patient states that pain is worse today. Discussed with oncology team and urology. Plan to insert 3 way alas catheter and start aminocaproic acid as per oncology for bleeding control. Upon discharge patient will follow up with Dr Lau/ Dr Woods and needs outpatient PET scan. Dr Rocco Contreras
--- NOTE | 2016-10-16 19:52 | PN ---
DATE: 10/16/2016 The patient is in room 578, bed #2. PROBLEM: This is a 61-year-old male with a diagnosis of high-grade urothelial bladder carcinoma presenting with hematuria and right-sided hydronephrosis from obstructive changes related to progressive cancer. The patient had undergone recently cystoscopy with removal by transurethral resection of a large tumor from the bladder, pathology of which is still pending. The patient had a Richardson catheter, which was draining initially rita urine, later bloody urine has been removed and he has been passing clots. His hemoglobin had dropped and the patient received 2 units of blood in preparation for his possible discharge. The patient is in significant pain today and he is also short of breath related to the pain with very poor appetite. The patient is actually writhing in agony. The patient is seen with the medical residents and the hospital attending as well. PHYSICAL EXAMINATION: GENERAL: The patient appears to be cachectic. The patient is in a considerable amount of pain with a pain score of at least 9/10. VITAL SIGNS: T-max of 98.4, pulse of 55, respirations 18, blood pressure 124/79, O2 sat is 100%. HEENT: Head is normocephalic and atraumatic. The patient has temporal muscle wasting noted. Examination of the oropharynx reveals the tongue to be dry and coated. No oropharyngeal lesions are seen. NECK: Supple. There is no adenopathy. LUNGS: Reveal to be clear to percussion and auscultation. HEART: Examination of the heart reveals PMI to be in the fifth intercostal space inside the midclavicular line. ABDOMEN: Soft, scaphoid. The patient has suprapubic tenderness. EXTREMITIES: Reveal no cyanosis, clubbing or edema. NEUROLOGIC: The patient is awake and alert. He is complaining of significant amount of pain with spasms related to probably formation of clots in the bladder post procedure. LABORATORY DATA: Laboratory data from today was reviewed. Hemoglobin is 10.8 with hematocrit of 32.8, platelet count of 397,000, white count is 10.7. Chemistries reveal sodium of 138, potassium of 3.1, CO2 of 29, BUN of 29 and creatinine of 0.8. AST and ALT are normal. AG ratio is reversed is 1. 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 The cystoscopy also revealed rather significant tumor in the bladder that had been removed by Dr. Woods on 10/14/2016. The patient's CAT scan was reviewed of the abdomen and pelvis and the CAT scan showed that the patient has significant right hydronephrosis and he has also multiple lesions in the liver, the significance of which is unclear. We may have to do an MR of the liver or an ultrasound, probably followed by evaluation for CT-guided biopsy to make sure what we are dealing with, is indeed benign or metastatic disease from the bladder. As I mentioned, within the bladder, there was gigantic mass along the right side that ureteral orifice could not be identified. Serial biopsies of that had been taken following which he had a Richardson catheter placed in post procedure. CT of the chest does not show any significant findings as far as metastatic cancer is concerned in the lungs. Mediastinum and vascular structures are normal. ASSESSMENT NOTES AND PLAN: The patient has a high-grade urothelial malignancy that is invading locally into the structures causing the right hydronephrosis. The patient may be a candidate for neoadjuvant therapy if this is the only area of disease followed by evaluation for surgery given his age. Because of his overall comorbid medical issues, I am not really sure if he will be candidate for any aggressive procedures at this point in time. Given the fact that he has lesions in the liver we have to ascertain the nature of these lesions and he may need to get further additional testing pertaining to the liver before jumping on treatments for the bladder tumor. We do have new treatments for bladder tumor besides chemotherapy including immunotherapy with a new drug called Tecentriq, which is a immunotherapy for progressive metastatic urothelial malignancy. The patient may be a candidate in the meanwhile for systemic therapy with point hope ira or carboplatinum based regimen as a initial treatment for his bladder carcinoma. This could be given in combination with gemcitabine if necessary. We will talk to the family once we have all the other parameters obtained. In the meanwhile, the patient will need for now recommendations would be, he needs a CBI to irrigate the bladder to get out the clots so the patient will not have spasms and pains related to the same and not come back into the hospital again and two, to see if the patient is a candidate for oral Amicar to limit the amount of bleeding post procedure as the tract has significant amount of local fibrinolytic activity which maybe preventing from the bleeding to stop. I explained all this to the residents. We are going to make sure we get at least started with the CBI and Amicar if it is available in the pharmacy, tranexamic acid 600 mg 2 tablets twice a day would be another alternative if the patient can obtain it through an outside pharmacy and can be administered to him while he is in the hospital. Overall prognosis is guarded. We will continue to monitor the patient with you and make appropriate recommendations. Fredy Aldana MD
[2016-10-17] MEDS: Sodium Chloride 0.9% 1,000 ML IV SCH ×2 (04:37→15:04)
[2016-10-17] MEDS: Pantoprazole 40 mg EC Tab PO SCH (07:01)
--- NOTE | 2016-10-17 11:11 | CP.PCM.PN ---
<Abdulkadir Johnson - Last Filed: 10/17/16 11:17> Subjective - Date & Time of Evaluation Date of Evaluation: 10/17/16 Time of Evaluation: 10:08 - Subjective Subjective: Patient was seen and examined at bedside this morning. The patient reports feeling better than yesterday and has no active complaints. Yesterday evening the patient had a 3 Way alas catheter placed. The patient denies any chest pain, shortness of breath, lightheadedness, dizziness, abdominal pain, constipation, diarrhea, or any other complaints. Objective - Vital Signs/Intake and Output Vital Signs (last 24 hours): Temp Pulse Resp BP Pulse Ox 98.3 F 67 20 111/74 99 10/17/16 07:57 10/17/16 07:57 10/17/16 07:57 10/17/16 07:57 10/17/16 07:57 Intake and Output: 10/17/16 10/17/16 06:59 18:59 Intake Total 2260 Output Total 3100 Balance -840 - Medications Medications: Current Medications Acetaminophen (Tylenol 325mg Tab) 650 mg PO Q4H PRN PRN Reason: Pain, Mild (1-3) Aminocaproic Acid (Aminocaproic Acid 500 Mg Tab) 1,000 mg PO Q8 [facility] Last Admin: 10/17/16 07:01 Dose: 1,000 mg Cyproheptadine HCl (Periactin) 4 mg PO DAILY [facility] Last Admin: 10/17/16 10:28 Dose: 4 mg Hydromorphone HCl (Dilaudid) 1 mg IVP Q4H PRN PRN Reason: Pain, severe (8-10) Last Admin: 10/16/16 14:06 Dose: 1 mg Sodium Chloride (Sodium Chloride 0.9%) 1,000 mls @ 100 mls/hr IV .Q10H [facility] Last Admin: 10/17/16 04:37 Dose: 100 mls/hr Ondansetron HCl (Zofran Inj) 4 mg IVP Q6H PRN PRN Reason: Nausea/Vomiting Last Admin: 10/16/16 14:06 Dose: 4 mg Pantoprazole Sodium (Protonix Ec Tab) 40 mg PO 0600 [facility] Last Admin: 10/17/16 07:01 Dose: 40 mg - Labs Labs: 10/16/16 07:00 10/16/16 07:00 PT 11.0 Seconds (9.9-11.8) 10/09/16 20:30 INR 1.02 (0.93-1.08) 10/09/16 20:30 APTT 27.3 Seconds (23.7-30.8) 10/09/16 20:30 - Head Exam Head Exam: ATRAUMATIC, NORMAL INSPECTION, NORMOCEPHALIC - Eye Exam Eye Exam: EOMI, Normal appearance, PERRL Pupil Exam: NORMAL ACCOMODATION, PERRL. absent: Irregular - ENT Exam ENT Exam: Mucous Membranes Moist, Normal Exam - Neck Exam Neck Exam: Full ROM, Normal Inspection - Respiratory Exam Respiratory Exam: Clear to Ausculation Bilateral, NORMAL BREATHING PATTERN. absent: Accessory Muscle Use, Chest Wall Tenderness, Rales, Rhonchi - Cardiovascular Exam Cardiovascular Exam: REGULAR RHYTHM, RRR, +S1. absent: Gallop, Rubs - GI/Abdominal Exam GI & Abdominal Exam: Soft, Normal Bowel Sounds - Exam Additional comments: 3 way alas inserted. Blood appreciated in the urine. - Extremities Exam Extremities Exam: Full ROM - Back Exam Back Exam: NORMAL INSPECTION. absent: paraspinal tenderness - Neurological Exam Neurological Exam: Alert, Awake, CN II-XII Intact, Oriented x3 - Psychiatric Exam Psychiatric exam: Normal Affect, Normal Mood - Skin Skin Exam: Dry, Intact. absent: Rash, Urticaria Assessment and Plan - Assessment and Plan (Free Text) Assessment: 61 [place] M with PMH bladder cancer s/p laser resection (06/2016), admitted for gross hematuria 2/2 to bladder mass shown on CT. CT also showed hydronephrosis 2 /2 to bladder mass. Patient found to be anemic on admission, likely secondary to the gross hematuria. Plan: 1. Hematuria 2/2 likely uretero obstructing mass: - afebrile. no leukocytosis - Urine output 4500 overnight (pink-reddish color) - UA on admission showed clear yellow urine, protein 100, large blood, rbc tntc , + nitrate and trace leuk esterase, few bacteria, neg bili, 2-5 wbcs. - Urine Cultures and blood cultures negative - Normal Kidney function - CT chest did not show any pulmonary masses or lymph nodes - cystoscope yesterday. Has alas catheter placed post cystoscope. -Continue CBI w/ Aminocaproic Acid. Surgery resident placed alas. 2. Normocytic Anemia 2/2 to gross hematuria: - Likely 2/2 acute blood loss. -Hgb 10.8 s/p 2 units PRBCs yesterday per Onco 3. Hx of high grade transitional cell carcinoma: - Urology consulted, Dr. Woods, recalisson appreciated - had Cystoscopy this yesterday. Biopsy results pending. - Oncology consulted, Dr. Aldana Will discuss with Urology further mangament. Patient will get PET scan on outpatient basis - [facility] in [place], [place] called on (10/13). Faxed request for any pet scan records. NO PET scan records have been returned. DVT PPX: SCDs GI PPX: Protonix <Ramona HOLT,Ulysses - Last Filed: 10/19/16 14:54> Objective - Vital Signs/Intake and Output Vital Signs (last 24 hours): Temp Pulse Resp BP Pulse Ox 98.5 F 79 18 135/89 97 10/19/16 08:00 10/19/16 08:00 10/19/16 08:00 10/19/16 08:00 10/19/16 08:00 Intake and Output: 10/19/16 10/19/16 06:59 18:59 Intake Total 760 1760 Output Total 2700 Balance 760 -940 - Medications Medications: Current Medications Acetaminophen (Tylenol 325mg Tab) 650 mg PO Q4H PRN PRN Reason: Pain, Mild (1-3) Aminocaproic Acid (Aminocaproic Acid 500 Mg Tab) 1,000 mg PO Q8 [facility] Last Admin: 10/19/16 14:19 Dose: 1,000 mg Cyproheptadine HCl (Periactin) 4 mg PO DAILY [facility] Last Admin: 10/19/16 10:33 Dose: 4 mg Hydromorphone HCl (Dilaudid) 1 mg IVP Q4H PRN PRN Reason: Pain, severe (8-10) Last Admin: 10/17/16 21:38 Dose: 1 mg Sodium Chloride (Sodium Chloride 0.9%) 1,000 mls @ 100 mls/hr IV .Q10H [facility] Last Admin: 10/19/16 14:21 Dose: 100 mls/hr Ondansetron HCl (Zofran Inj) 4 mg IVP Q6H PRN PRN Reason: Nausea/Vomiting Last Admin: 10/16/16 14:06 Dose: 4 mg Pantoprazole Sodium (Protonix Ec Tab) 40 mg PO 0600 [facility] Last Admin: 10/19/16 06:25 Dose: 40 mg - Labs Labs: 10/19/16 07:21 10/19/16 07:21 PT 11.0 Seconds (9.9-11.8) 10/09/16 20:30 INR 1.02 (0.93-1.08) 10/09/16 20:30 APTT 27.3 Seconds (23.7-30.8) 10/09/16 20:30 Attending/Attestation - Attestation I have personally seen and examined this patient.: Yes I have fully participated in the care of the patient.: Yes I have reviewed all pertinent clinical information, including history, physical exam and plan: Yes Notes (Text): 10/19/16 14:50 Patient was seen and examined with paramedical aide. Agreed with resident assessment and plan. 61 M with H of bladder cancer s/p resection who presented with gross hematuria secondary to bladder mass who underwent TURBT . Patient has high grade invasive TCC. He developed has gross hematuria and was started on [address] alas irrigation.Patient hematuria is better today.We will Monitor Hemoglobin and Hematocrit, .Urology and Oncology are following. Management plan was discussed in detail with patient Education was provided.
[2016-10-17] MEDS: HYDROmorphone 1 mg/ml ISec IVP PRN ×2 (17:00→21:38)
--- NOTE | 2016-10-17 18:15 | PN ---
DATE: 10/17/2016 LOCATION: The patient is in room 578, bed #2. SUBJECTIVE: The patient is seen and examined in bed this morning. The patient feels better than yesterday. He has no significant complaints, previously noted suprapubic discomfort is whole lot better. The patient had a 3-way Richardson catheter put in last night and he is already been started on Amicar 1 g every 8 hours. Urine in the Richardson bag is rita in color without any active clots at this time. The patient denies any chest pain, shortness of breath, lightheadedness, dizziness, abdominal pain, constipation, diarrhea or fevers or chills. PHYSICAL EXAMINATION: GENERAL: The patient awake, alert, and oriented in no acute distress. VITAL SIGNS: T-max of 98.3, pulse of 67, respirations 20, blood pressure 111/74, pulse ox is 99%. HEENT: Head is normocephalic and atraumatic. Temporal muscle wasting noted. No oropharyngeal lesions are noted. NECK: Supple. There is no adenopathy. LUNGS: Clear to percussion and auscultation. HEART: Examination of the heart reveals PMI to be in the fifth intercostal space inside the midclavicular line. S1 and S2 were normal. ABDOMEN: Soft, scaphoid, nontender. At this point, no suprapubic tenderness noted. : The patient has 3-way Richardson catheter in, which is draining rita color urine in the container. EXTREMITIES: Reveal no cyanosis, clubbing or edema. NEUROLOGIC: The patient is awake, alert and oriented with no focal deficits. SKIN: Turgor is normal. No skin lesions are noted. MEDICATIONS: The patient's medications were reviewed. He is on Tylenol and Amicar 500-mg tablets 1000 mg q. 8 hours, Periactin 4 mg daily, Dilaudid 1 mg IV q. 4 hours p.r.n. He is on normal saline IV at 100 mL an hour, ondansetron 4 mg IV q. 6 h p.r.n. for nausea and Protonix 40 mg p.o. daily. LABORATORY DATA: Labs from yesterday revealed white count is 10.7, hemoglobin is 10.8, hematocrit of 32.8, platelet count of 395,000, potassium was 3.1. We will check today's labs. Sodium of 138, chloride 102, CO2 of 29, BUN of 29 and creatinine of 0.8, blood sugar of 94. ASSESSMENT NOTES AND PLAN: This 61-year-old male with recently diagnosed high-grade bladder carcinoma, final pathology is pending, encroaching onto and involving the ureteric orifice on the right side with right hydronephrosis, multiple lesions evident on the CT scan of the abdomen in the liver could be either primary or metastatic or just benign is unclear, may need additional testing such as an ultrasound and MRI, prior to getting a PET/CT scan to determine the patient has either locally advanced disease and/or metastatic cancer at this time. Hematuria appears to be abating, we will continue the Amicar at least for the next 3 days and if he continues to improve over the next 24 to 48 hours, we can plan on discontinuing the Richardson catheter. We will continue to monitor his blood count in the interim and we will discuss once we get the final path. The patient may benefit from getting an ultrasound and MRI of the liver to further delineate the changes in the liver. We will speak to the attending and to the resident managing the case. Fredy Aldana MD
--- NOTE | 2016-10-17 22:16 | CP.PCM.PN ---
Subjective - Date & Time of Evaluation Date of Evaluation: 10/17/16 Time of Evaluation: 22:15 - Subjective Subjective: # [address] Richardson catheter was inserted for CBI as per 's order. Objective - Vital Signs/Intake and Output Vital Signs (last 24 hours): Temp Pulse Resp BP Pulse Ox 98.6 F 75 20 127/77 100 10/17/16 16:00 10/17/16 16:00 10/17/16 16:00 10/17/16 16:00 10/17/16 16:00 Intake and Output: 10/17/16 10/18/16 18:59 06:59 Intake Total 450 Output Total 9000 Balance -8550 - Medications Medications: Current Medications Acetaminophen (Tylenol 325mg Tab) 650 mg PO Q4H PRN PRN Reason: Pain, Mild (1-3) Aminocaproic Acid (Aminocaproic Acid 500 Mg Tab) 1,000 mg PO Q8 [facility] Last Admin: 10/17/16 21:36 Dose: 1,000 mg Cyproheptadine HCl (Periactin) 4 mg PO DAILY [facility] Last Admin: 10/17/16 10:28 Dose: 4 mg Hydromorphone HCl (Dilaudid) 1 mg IVP Q4H PRN PRN Reason: Pain, severe (8-10) Last Admin: 10/17/16 21:38 Dose: 1 mg Sodium Chloride (Sodium Chloride 0.9%) 1,000 mls @ 100 mls/hr IV .Q10H [facility] Last Admin: 10/17/16 15:04 Dose: 100 mls/hr Ondansetron HCl (Zofran Inj) 4 mg IVP Q6H PRN PRN Reason: Nausea/Vomiting Last Admin: 10/16/16 14:06 Dose: 4 mg Pantoprazole Sodium (Protonix Ec Tab) 40 mg PO 0600 [facility] Last Admin: 10/17/16 07:01 Dose: 40 mg - Labs Labs: 10/16/16 07:00 10/16/16 07:00 PT 11.0 Seconds (9.9-11.8) 10/09/16 20:30 INR 1.02 (0.93-1.08) 10/09/16 20:30 APTT 27.3 Seconds (23.7-30.8) 10/09/16 20:30
[2016-10-18] MEDS: Pantoprazole 40 mg EC Tab PO SCH (05:42)
[2016-10-18 07:02] LABS: HEMATOCRIT 26.8 % (42.0-52.0); MEAN CELL VOLUME 89.6 fl (80.0-105.0); MEAN CORPUSCULAR HEMOGLOBIN 28.4 pg (25.0-35.0); MEAN CORPUSCULAR HGB CONC 31.7 g/dl (31.0-37.0); MEAN PLATELET VOLUME 8.9 fl (7.0-11.0); RED CELL DISTRIBUTION WIDTH 15.5 % (11.5-14.5)
[2016-10-18 07:08] LABS: BLOOD UREA NITROGEN 22 mg/dL (7-21); CARBON DIOXIDE 30 mmol/L (21-33); CHLORIDE 102 mmol/L (98-107); GFR AFRICAN-AMERICAN > 60; GLUCOSE,RANDOM 96 mg/dL (70-110); SODIUM 138 mmol/L (132-148)
[2016-10-18 07:10] LABS: ALB/GLOB RATIO 1.1 (1.1-1.8); ALKALINE PHOSPHATASE 63 U/L (38-126); ALT/SGPT 40 U/L (7-56); AST/SGOT 35 U/L (17-59); BILIRUBIN,TOTAL 0.2 mg/dL (0.2-1.3); CALCIUM 8.6 mg/dL (8.4-10.5); TOTAL PROTEIN 5.8 g/dL (5.8-8.3)
--- NOTE | 2016-10-18 14:03 | CP.PCM.PN ---
<Abdulkadir Johnson - Last Filed: 10/18/16 14:14> Subjective - Date & Time of Evaluation Date of Evaluation: 10/18/16 Time of Evaluation: 08:58 - Subjective Subjective: Patient was seen and examined at bedside. Patient feel better today. The patient denies any chest pain, shortness of breath, nausea, vomiting, lightheadedness, dizziness, abdominal pain, constipation, diarheaa, or any other complaints. Objective - Vital Signs/Intake and Output Vital Signs (last 24 hours): Temp Pulse Resp BP Pulse Ox 98.1 F 69 18 114/71 98 10/18/16 08:00 10/18/16 08:00 10/18/16 08:00 10/18/16 08:00 10/18/16 08:00 Intake and Output: 10/18/16 10/18/16 06:59 18:59 Intake Total 2400 Output Total 5800 Balance -3400 - Medications Medications: Current Medications Acetaminophen (Tylenol 325mg Tab) 650 mg PO Q4H PRN PRN Reason: Pain, Mild (1-3) Aminocaproic Acid (Aminocaproic Acid 500 Mg Tab) 1,000 mg PO Q8 [facility] Last Admin: 10/18/16 13:47 Dose: 1,000 mg Cyproheptadine HCl (Periactin) 4 mg PO DAILY [facility] Last Admin: 10/18/16 10:05 Dose: 4 mg Hydromorphone HCl (Dilaudid) 1 mg IVP Q4H PRN PRN Reason: Pain, severe (8-10) Last Admin: 10/17/16 21:38 Dose: 1 mg Sodium Chloride (Sodium Chloride 0.9%) 1,000 mls @ 100 mls/hr IV .Q10H [facility] Last Admin: 10/17/16 15:04 Dose: 100 mls/hr Ondansetron HCl (Zofran Inj) 4 mg IVP Q6H PRN PRN Reason: Nausea/Vomiting Last Admin: 10/16/16 14:06 Dose: 4 mg Pantoprazole Sodium (Protonix Ec Tab) 40 mg PO 0600 [facility] Last Admin: 10/18/16 05:42 Dose: 40 mg - Labs Labs: 10/18/16 06:40 10/18/16 06:40 PT 11.0 Seconds (9.9-11.8) 10/09/16 20:30 INR 1.02 (0.93-1.08) 10/09/16 20:30 APTT 27.3 Seconds (23.7-30.8) 10/09/16 20:30 - Constitutional Appears: Older Than Stated Age, Cachectic - Head Exam Head Exam: ATRAUMATIC, NORMAL INSPECTION, NORMOCEPHALIC - Eye Exam Eye Exam: EOMI, Normal appearance, PERRL Pupil Exam: NORMAL ACCOMODATION, PERRL. absent: Irregular - ENT Exam ENT Exam: Mucous Membranes Moist, Normal Exam - Neck Exam Neck Exam: Normal Inspection - Respiratory Exam Respiratory Exam: Clear to Ausculation Bilateral, NORMAL BREATHING PATTERN. absent: Accessory Muscle Use, Chest Wall Tenderness - Cardiovascular Exam Cardiovascular Exam: REGULAR RHYTHM, RRR, +S1, +S2. absent: Gallop, Rubs - GI/Abdominal Exam GI & Abdominal Exam: Soft, Normal Bowel Sounds. absent: Rigid, Tenderness - Exam Additional comments: 3 Way Catheter placed. - Extremities Exam Extremities Exam: Full ROM. absent: Pedal Edema - Back Exam Back Exam: NORMAL INSPECTION. absent: CVA tenderness (L), CVA tenderness (R), paraspinal tenderness - Neurological Exam Neurological Exam: Awake, CN II-XII Intact. absent: Motor Sensory Deficit - Psychiatric Exam Psychiatric exam: Normal Affect, Normal Mood - Skin Skin Exam: Dry, Intact Assessment and Plan - Assessment and Plan (Free Text) Assessment: 61 [place] M with H bladder cancer s/p laser resection (06/2016), admitted for gross hematuria 2/2 to bladder mass shown on CT. CT also showed hydronephrosis 2 /2 to bladder mass. Patient found to be anemic on admission, likely secondary to the gross hematuria. Plan: 1. Hematuria 2/2 likely uretero obstructing mass: - Urine output 20272 overnight (pink-reddish color) - UA on admission showed clear yellow urine, protein 100, large blood, rbc tntc , + nitrate and trace leuk esterase, few bacteria, neg bili, 2-5 wbcs. - Urine Cultures and blood cultures negative - Normal Kidney function . Afebrile and no leukocytosis present. - CT chest did not show any pulmonary masses or lymph nodes - cystoscope yesterday. Has alas catheter placed post cystoscope. -Continue CBI w/ Aminocaproic Acid. Surgery resident placed alas. 2. Normocytic Anemia 2/2 to gross hematuria: - Likely 2/2 acute blood loss. -Hgb 8.2(down from 10.8) s/p 2 units PRBCs. 3. Hx of high grade transitional cell carcinoma: - Urology consulted, Dr. Woods, recs appreciated - had Cystoscopy this yesterday. Biopsy results pending. - Oncology consulted, Dr. Aldana recalisson appreciated. Will discuss with Urology further mangament. Patient will get PET scan on outpatient basis. - [facility] in [place], [place] called on (10/13). Faxed request for any pet scan records. NO PET scan records have been returned. DVT PPX: SCDs GI PPX: Protonix <Yani Mcconnell - Last Filed: 10/19/16 14:56> Objective - Vital Signs/Intake and Output Vital Signs (last 24 hours): Temp Pulse Resp BP Pulse Ox 98.5 F 79 18 135/89 97 10/19/16 08:00 10/19/16 08:00 10/19/16 08:00 10/19/16 08:00 10/19/16 08:00 Intake and Output: 10/19/16 10/19/16 06:59 18:59 Intake Total 760 1760 Output Total 2700 Balance 760 -940 - Medications Medications: Current Medications Acetaminophen (Tylenol 325mg Tab) 650 mg PO Q4H PRN PRN Reason: Pain, Mild (1-3) Aminocaproic Acid (Aminocaproic Acid 500 Mg Tab) 1,000 mg PO Q8 [facility] Last Admin: 10/19/16 14:19 Dose: 1,000 mg Cyproheptadine HCl (Periactin) 4 mg PO DAILY [facility] Last Admin: 10/19/16 10:33 Dose: 4 mg Hydromorphone HCl (Dilaudid) 1 mg IVP Q4H PRN PRN Reason: Pain, severe (8-10) Last Admin: 10/17/16 21:38 Dose: 1 mg Sodium Chloride (Sodium Chloride 0.9%) 1,000 mls @ 100 mls/hr IV .Q10H [facility] Last Admin: 10/19/16 14:21 Dose: 100 mls/hr Ondansetron HCl (Zofran Inj) 4 mg IVP Q6H PRN PRN Reason: Nausea/Vomiting Last Admin: 10/16/16 14:06 Dose: 4 mg Pantoprazole Sodium (Protonix Ec Tab) 40 mg PO 0600 [facility] Last Admin: 10/19/16 06:25 Dose: 40 mg - Labs Labs: 10/19/16 07:21 10/19/16 07:21 PT 11.0 Seconds (9.9-11.8) 10/09/16 20:30 INR 1.02 (0.93-1.08) 10/09/16 20:30 APTT 27.3 Seconds (23.7-30.8) 10/09/16 20:30 Attending/Attestation - Attestation I have personally seen and examined this patient.: Yes I have fully participated in the care of the patient.: Yes I have reviewed all pertinent clinical information, including history, physical exam and plan: Yes Notes (Text): 10/19/16 14:52 Attending note; Patient seen and examined with resident. Patient is a 61-year-old male is admitted with suprapubic pain. patient with a history of bladder cancer and did not receive any treatment. CT showed significant bladder mass and right hydronephrosis. CT chest Is negative for any pulmonary mass of lymphadenopathy. status post cystoscopy and biopsy. Currently has previously Alas catheter with continuous bladder irrigation. Hematuria is resolving. 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 Patient was evaluated by urology today. Oncology evaluation appreciated. Needs PET scan as outpatient. anemia: Monitor hemoglobin closely. Cachexia; dietitian evaluation appreciated. Patient needs close follow up with oncology/urological surgery as outpatient.
[2016-10-19] MEDS: Sodium Chloride 0.9% 1,000 ML IV SCH ×2 (06:25→14:21)
[2016-10-19] MEDS: Pantoprazole 40 mg EC Tab PO SCH (06:25)
[2016-10-19 07:26] LABS: MEAN CORPUSCULAR HEMOGLOBIN 28.3 pg (25.0-35.0); MEAN CORPUSCULAR HGB CONC 31.4 g/dl (31.0-37.0); MEAN PLATELET VOLUME 8.8 fl (7.0-11.0); RED CELL DISTRIBUTION WIDTH 15.2 % (11.5-14.5); WHITE BLOOD COUNT 7.8 10^3/ul (4.5-11.0)
[2016-10-19 07:37] LABS: ALB/GLOB RATIO 1.1 (1.1-1.8); ALKALINE PHOSPHATASE 70 U/L (38-126); ALT/SGPT 40 U/L (7-56); AST/SGOT 37 U/L (17-59); BILIRUBIN,TOTAL 0.1 mg/dL (0.2-1.3); BLOOD UREA NITROGEN 26 mg/dL (7-21); CALCIUM 8.8 mg/dL (8.4-10.5); CARBON DIOXIDE 27 mmol/L (21-33); CHLORIDE 104 mmol/L (98-107); GFR AFRICAN-AMERICAN > 60; GLUCOSE,RANDOM 92 mg/dL (70-110); POTASSIUM 4.1 mmol/L (3.6-5.0); SODIUM 141 mmol/L (132-148); TOTAL PROTEIN 6.3 g/dL (5.8-8.3)
--- NOTE | 2016-10-19 21:26 | PN ---
DATE: 10/17/2016 SUBJECTIVE: The patient is examined by the bedside. He is feeling better. Denies any history of chest pain, shortness of breath, nausea, vomiting, lightheadedness, constipation, diarrhea, any other significant complaints at this time. OBJECTIVE: GENERAL: The patient is looking better. The patient is awake, alert and oriented, in no acute distress. VITAL SIGNS: Stable as stated in the chart. HEENT: Head is normocephalic and atraumatic. Temporal muscle wasting is noted. No oropharyngeal lesions are noted on examination of the mouth. NECK: Supple. There is no adenopathy. LUNGS: Clear to percussion and auscultation. HEART: PMI in the fifth intercostal space, inside the midclavicular line. S1 and S2 are normal. ABDOMEN: Soft, scaphoid, nontender. No suprapubic tenderness is noted. GENITOURINARY: The patient has a three-way Richardson catheter draining rita-colored urine. EXTREMITIES: Reveal no edema, cyanosis or clubbing. NEUROLOGIC: The patient is awake, alert and oriented. SKIN: Turgor is normal. No skin lesions are noted. MEDICATIONS: Reviewed, they are unchanged at this time. He is still on Amicar 1 g q. 8 hours. LABORATORY DATA: Reveal white count of 8, hemoglobin is 8.8 with a hematocrit of 28 and platelet count of 368,000. Chemistries reveal electrolytes to be unremarkable. BUN is 26 with a creatinine of 1, AST and ALT are within normal limits. ASSESSMENT NOTES AND PLAN: I discussed my findings with the medical dosimetrist and the attending on the case. In the view of lesions in the liver, I would definitely recommend that they do an MR of the liver to further ascertain what is going on. As far as the lesions in the liver are concerned, metastasis versus benign process. 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 Tumor was large, was obliterating the urethral orifice on the right side causing the right hydronephrosis. ASSESSMENT: The patient has locally advanced bladder carcinoma with liver metastasis, agree with getting the MRI of the liver and then following the patient as an outpatient. We will try to get a PET-CT scan as an outpatient in order to more appropriately stage the patient. I discussed my findings in detail with the patient's son. Hopefully, once the patient is stabilized, then will be able to do several other things as an outpatient including plans for systemic therapy. Discussed my findings with the urologist, Dr. Woods. Fredy Aldana MD
--- NOTE | 2016-10-19 22:48 | CP.PCM.PN ---
<Logan Henriquez - Last Filed: 10/19/16 22:45> Subjective - Date & Time of Evaluation Date of Evaluation: 10/19/16 Time of Evaluation: 22:45 - Subjective Subjective: Patient was seen and examined at bedside. Patient feel better today. The patient denies any chest pain, shortness of breath, nausea, vomiting, lightheadedness, dizziness, abdominal pain, constipation, diarrhea, or any other complaints. Objective - Vital Signs/Intake and Output Vital Signs (last 24 hours): Temp Pulse Resp BP Pulse Ox 97.4 F L 70 18 108/69 97 10/19/16 16:11 10/19/16 16:11 10/19/16 16:11 10/19/16 16:11 10/19/16 16:11 Intake and Output: 10/19/16 10/20/16 18:59 06:59 Intake Total 2400 660 Output Total 2700 Balance -300 660 - Medications Medications: Current Medications Acetaminophen (Tylenol 325mg Tab) 650 mg PO Q4H PRN PRN Reason: Pain, Mild (1-3) Aminocaproic Acid (Aminocaproic Acid 500 Mg Tab) 1,000 mg PO Q8 [facility] Last Admin: 10/19/16 21:48 Dose: 1,000 mg Cyproheptadine HCl (Periactin) 4 mg PO DAILY [facility] Last Admin: 10/19/16 10:33 Dose: 4 mg Hydromorphone HCl (Dilaudid) 1 mg IVP Q4H PRN PRN Reason: Pain, severe (8-10) Last Admin: 10/17/16 21:38 Dose: 1 mg Sodium Chloride (Sodium Chloride 0.9%) 1,000 mls @ 100 mls/hr IV .Q10H [facility] Last Admin: 10/19/16 14:21 Dose: 100 mls/hr Ondansetron HCl (Zofran Inj) 4 mg IVP Q6H PRN PRN Reason: Nausea/Vomiting Last Admin: 10/16/16 14:06 Dose: 4 mg Pantoprazole Sodium (Protonix Ec Tab) 40 mg PO 0600 [facility] Last Admin: 10/19/16 06:25 Dose: 40 mg - Labs Labs: 10/19/16 07:21 10/19/16 07:21 PT 11.0 Seconds (9.9-11.8) 10/09/16 20:30 INR 1.02 (0.93-1.08) 10/09/16 20:30 APTT 27.3 Seconds (23.7-30.8) 10/09/16 20:30 - Constitutional Appears: Non-toxic, No Acute Distress, Cachectic - Head Exam Head Exam: ATRAUMATIC, NORMAL INSPECTION, NORMOCEPHALIC - Eye Exam Eye Exam: Normal appearance - ENT Exam ENT Exam: Mucous Membranes Moist - Cardiovascular Exam Cardiovascular Exam: RRR, +S1, +S2 - GI/Abdominal Exam GI & Abdominal Exam: Soft, Normal Bowel Sounds. absent: Tenderness - Extremities Exam Extremities Exam: absent: Pedal Edema - Back Exam Back Exam: absent: CVA tenderness (L), CVA tenderness (R) - Neurological Exam Neurological Exam: Alert, Awake, Oriented x3 - Psychiatric Exam Psychiatric exam: Normal Affect, Normal Mood - Skin Skin Exam: Dry, Intact, Normal Color, Warm Assessment and Plan - Assessment and Plan (Free Text) Assessment: 61 [place] M with H bladder cancer s/p laser resection (06/2016), admitted for gross hematuria 2/2 to bladder mass shown on CT. CT also showed hydronephrosis 2 /2 to bladder mass. Patient found to be anemic on admission, likely secondary to the gross hematuria. 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 Invasive into lamina propia and muscularis lymphovascular invasion identified. Plan: 1. Hematuria 2/2 likely uretero obstructing mass: - Output 2700. Light red urine. - UA on admission showed clear yellow urine, protein 100, large blood, rbc tntc , + nitrate and trace leuk esterase, few bacteria, neg bili, 2-5 wbcs. - Urine Cultures and blood cultures negative - Normal Kidney function. Afebrile and no leukocytosis present. - CT chest did not show any pulmonary masses or lymph nodes -Continue CBI w/ Aminocaproic Acid. Surgery resident placed alas(10/16) 2. Normocytic Anemia 2/2 to gross hematuria: - Likely 2/2 acute blood loss. -Hgb 7.8 today -Transfuse if Hgb below 7 -Monitor closely 3. Hx of high grade transitional cell carcinoma: - Urology consulted, Dr. 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 Invasive into lamina propia and muscularis lymphovascular invasion identified. - Oncology consulted, Dr. Aldana recs appreciated. Will discuss with Urology further mangament. Patient will get PET scan on outpatient basis. - [facility] in [place], [place] called on (10/13). Faxed request for any pet scan records. NO PET scan records have been returned. DVT PPX: SCDs GI PPX: Protonix Patient seen, and examined, and reviewed with Attending Logan PGY-1 Dispo: Will likely DC tomorrow pending recs from Uro/Onc. <Yani Mcconnell - Last Filed: 10/20/16 13:50> Objective - Vital Signs/Intake and Output Vital Signs (last 24 hours): Temp Pulse Resp BP Pulse Ox 97.1 F L 77 18 112/62 97 10/20/16 08:00 10/20/16 08:00 10/20/16 08:00 10/20/16 08:00 10/20/16 08:00 Intake and Output: 10/20/16 10/20/16 06:59 18:59 Intake Total 1260 Output Total 850 1800 Balance 410 -1800 - Medications Medications: Current Medications Acetaminophen (Tylenol 325mg Tab) 650 mg PO Q4H PRN PRN Reason: Pain, Mild (1-3) Aminocaproic Acid (Aminocaproic Acid 500 Mg Tab) 1,000 mg PO Q8 [facility] Last Admin: 10/20/16 13:17 Dose: 1,000 mg Cyproheptadine HCl (Periactin) 4 mg PO DAILY [facility] Last Admin: 10/20/16 09:26 Dose: 4 mg Hydromorphone HCl (Dilaudid) 1 mg IVP Q4H PRN PRN Reason: Pain, severe (8-10) Last Admin: 10/17/16 21:38 Dose: 1 mg Sodium Chloride (Sodium Chloride 0.9%) 1,000 mls @ 100 mls/hr IV .Q10H [facility] Last Admin: 10/20/16 05:37 Dose: 100 mls/hr Ondansetron HCl (Zofran Inj) 4 mg IVP Q6H PRN PRN Reason: Nausea/Vomiting Last Admin: 10/16/16 14:06 Dose: 4 mg Pantoprazole Sodium (Protonix Ec Tab) 40 mg PO 0600 [facility] Last Admin: 10/20/16 05:35 Dose: 40 mg - Labs Labs: 10/20/16 09:30 10/20/16 09:30 PT 11.0 Seconds (9.9-11.8) 10/09/16 20:30 INR 1.02 (0.93-1.08) 10/09/16 20:30 APTT 27.3 Seconds (23.7-30.8) 10/09/16 20:30 Attending/Attestation - Attestation I have personally seen and examined this patient.: Yes I have fully participated in the care of the patient.: Yes I have reviewed all pertinent clinical information, including history, physical exam and plan: Yes Notes (Text): 10/20/16 13:49 Attending note; Patient seen and examined with resident. Patient is a 61-year-old male is admitted with suprapubic pain. patient with a history of bladder cancer and did not receive any treatment. CT showed significant bladder mass and right hydronephrosis. CT chest Is negative for any pulmonary mass of lymphadenopathy. status post cystoscopy and biopsy. Currently has previously Alas catheter with continuous bladder irrigation. Hematuria is resolving. 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 Oncology evaluation appreciated. MRI ordered to rule out possible hepatic metastasis. Needs PET scan as outpatient. anemia: Monitor hemoglobin closely. Patient needs close follow up with oncology/urological surgery as outpatient.
[2016-10-20] MEDS: Pantoprazole 40 mg EC Tab PO SCH (05:35)
[2016-10-20] MEDS: Sodium Chloride 0.9% 1,000 ML IV SCH (05:37)
[2016-10-20 09:45] LABS: BASO # 0.02 K/mm3 (0.0-2.0); BASO % 0.3 % (0.0-3.0); EOS # 0.4 (0.0-0.7); EOS % 5.1 % (1.5-5.0); GRAN # 5.43 (1.4-6.5); GRAN % 68.1 % (50.0-68.0); HEMATOCRIT 27.5 % (42.0-52.0); LYMPH # 1.5 (1.2-3.4); LYMPH % 18.3 % (22.0-35.0); MEAN CELL VOLUME 89.6 fl (80.0-105.0); MEAN CORPUSCULAR HEMOGLOBIN 28.3 pg (25.0-35.0); MEAN CORPUSCULAR HGB CONC 31.6 g/dl (31.0-37.0); MEAN PLATELET VOLUME 8.5 fl (7.0-11.0); MONO # 0.7 (0.1-0.6); MONO % 8.2 % (1.0-6.0); RED CELL DISTRIBUTION WIDTH 14.9 % (11.5-14.5)
[2016-10-20] MEDS ORDERED: Gadodiamide 287 MG/ML VIAL (15ML) IV ONE (09:49)
[2016-10-20 09:57] LABS: ALB/GLOB RATIO 1.1 (1.1-1.8); ALKALINE PHOSPHATASE 74 U/L (38-126); ALT/SGPT 35 U/L (7-56); AST/SGOT 28 U/L (17-59); BILIRUBIN,TOTAL 0.3 mg/dL (0.2-1.3); BLOOD UREA NITROGEN 14 mg/dL (7-21); CALCIUM 8.9 mg/dL (8.4-10.5); CARBON DIOXIDE 29 mmol/L (21-33); CHLORIDE 104 mmol/L (98-107); GFR AFRICAN-AMERICAN > 60; GLUCOSE,RANDOM 94 mg/dL (70-110); SODIUM 140 mmol/L (132-148); TOTAL PROTEIN 6.4 g/dL (5.8-8.3)
--- NOTE | 2016-10-20 11:09 | MRI ---
PROCEDURE: MRI Abdomen with and without contrast HISTORY: Evaluate liver lesions, bladder carcinoma staging COMPARISON: CT of the abdomen and pelvis 10/09/2016. TECHNIQUE: Multisequence, multiplanar MR images of the abdomen with and without gadolinium contrast enhancement. 15 cc of Omniscan FINDINGS: LIVER: The small hypodense lesions seen on CT have the appearance of cysts on MRI. These are hyper intense on fat-suppressed T2 imaging. There are no enhancing lesions. GALLBLADDER: Unremarkable. SPLEEN: Unremarkable. PANCREAS: Unremarkable. ADRENALS: Unremarkable. KIDNEYS: There is right-sided hydronephrosis. On CT this was seen as secondary to a large right bladder mass. The bladder was not included on the current abdominal MRI study AORTA: No aneurysm. ASCITES: None. PERITONEUM: Unremarkable. LYMPH NODES: Unremarkable. OTHER FINDINGS: None. IMPRESSION: Small simple cysts in the liver. No evidence of enhancing metastases. Right-sided hydronephrosis
--- NOTE | 2016-10-20 20:58 | CP.PCM.PN ---
<Logan Henriquez - Last Filed: 10/20/16 20:55> Subjective - Date & Time of Evaluation Date of Evaluation: 10/20/16 Time of Evaluation: 07:00 - Subjective Subjective: Patient was seen and examined at bedside. The patient denies any chest pain, shortness of breath, nausea, vomiting, lightheadedness, dizziness, abdominal pain, constipation, diarrhea, or any other complaints. Objective - Vital Signs/Intake and Output Vital Signs (last 24 hours): Temp Pulse Resp BP Pulse Ox 97.1 F L 77 18 112/62 97 10/20/16 08:00 10/20/16 08:00 10/20/16 08:00 10/20/16 08:00 10/20/16 08:00 Intake and Output: 10/20/16 10/21/16 18:59 06:59 Intake Total 600 Output Total 3500 Balance -2900 - Medications Medications: Current Medications Acetaminophen (Tylenol 325mg Tab) 650 mg PO Q4H PRN PRN Reason: Pain, Mild (1-3) Aminocaproic Acid (Aminocaproic Acid 500 Mg Tab) 1,000 mg PO Q8 [facility] Last Admin: 10/20/16 13:17 Dose: 1,000 mg Cyproheptadine HCl (Periactin) 4 mg PO DAILY [facility] Last Admin: 10/20/16 09:26 Dose: 4 mg Hydromorphone HCl (Dilaudid) 1 mg IVP Q4H PRN PRN Reason: Pain, severe (8-10) Last Admin: 10/17/16 21:38 Dose: 1 mg Sodium Chloride (Sodium Chloride 0.9%) 1,000 mls @ 100 mls/hr IV .Q10H [facility] Last Admin: 10/20/16 05:37 Dose: 100 mls/hr Ondansetron HCl (Zofran Inj) 4 mg IVP Q6H PRN PRN Reason: Nausea/Vomiting Last Admin: 10/16/16 14:06 Dose: 4 mg Pantoprazole Sodium (Protonix Ec Tab) 40 mg PO 0600 [facility] Last Admin: 10/20/16 05:35 Dose: 40 mg - Labs Labs: 10/20/16 09:30 10/20/16 09:30 PT 11.0 Seconds (9.9-11.8) 10/09/16 20:30 INR 1.02 (0.93-1.08) 10/09/16 20:30 APTT 27.3 Seconds (23.7-30.8) 10/09/16 20:30 - Constitutional Appears: No Acute Distress, Cachectic - Head Exam Head Exam: ATRAUMATIC, NORMOCEPHALIC - Eye Exam Eye Exam: Normal appearance - ENT Exam ENT Exam: Mucous Membranes Moist - Respiratory Exam Respiratory Exam: Clear to Ausculation Bilateral, NORMAL BREATHING PATTERN - Cardiovascular Exam Cardiovascular Exam: +S1, +S2 - GI/Abdominal Exam GI & Abdominal Exam: Soft, Tenderness, Normal Bowel Sounds - Extremities Exam Extremities Exam: Pedal Edema - Neurological Exam Neurological Exam: Alert, Awake, Oriented x3 - Psychiatric Exam Psychiatric exam: Normal Affect, Normal Mood Assessment and Plan - Assessment and Plan (Free Text) Assessment: 61 Egyptian and Spanish speaking M with H bladder cancer s/p laser resection (2016), admitted for gross hematuria 2/2 to bladder mass shown on CT. CT also showed hydronephrosis 2/2 to bladder mass. Patient found to be anemic on admission, likely secondary to the gross hematuria. 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 Invasive into lamina propia and muscularis lymphovascular invasion identified. Plan: 1. Hematuria 2/2 likely uretero obstructing mass: - Output 2900. Scant red urine - UA on admission showed clear yellow urine, protein 100, large blood, rbc tntc , + nitrate and trace leuk esterase, few bacteria, neg bili, 2-5 wbcs. - Urine Cultures and blood cultures negative - Normal Kidney function. Afebrile and no leukocytosis present. - CT chest did not show any pulmonary masses or lymph nodes -Continue CBI w/ Aminocaproic Acid. Surgery resident placed alas(10/16) -MRI Abd read Small simple cyst in the liver. No evidence of enhancing metastases. Right sided hyrdronephrosis 2. Normocytic Anemia 2/2 to gross hematuria: - Likely 2/2 acute blood loss. -Hgb 8 today -Transfuse if Hgb below 7 -Monitor closely 3. Hx of high grade transitional cell carcinoma: - Urology consulted, Dr. 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 Invasive into lamina propia and muscularis lymphovascular invasion identified. - Oncology consulted, Dr. Aldana recs appreciated. Will discuss with Urology further mangament. Patient will get PET scan on outpatient basis. - [facility] in [place], [place] called on (10/13). Faxed request for any pet scan records. NO PET scan records have been returned. - MRI Abd read Small simple cyst in the liver. No evidence of enhancing metastases. Right sided hyrdronephrosis DVT PPX: SCDs GI PPX: Protonix Patient seen, and examined, and reviewed with Attending Logan PGY-1 Dispo: Will likely DC tomorrow pending recs from Uro/Onc. <Yani Mcconnell - Last Filed: 10/21/16 17:57> Objective - Vital Signs/Intake and Output Vital Signs (last 24 hours): Temp Pulse Resp BP Pulse Ox 98.2 F 71 20 114/57 L 98 10/21/16 07:30 10/21/16 07:30 10/21/16 07:30 10/21/16 07:30 10/21/16 07:30 Intake and Output: 10/21/16 10/21/16 06:59 18:59 Intake Total 540 Output Total 2300 Balance -2300 540 - Medications Medications: Current Medications Acetaminophen (Tylenol 325mg Tab) 650 mg PO Q4H PRN PRN Reason: Pain, Mild (1-3) Aminocaproic Acid (Aminocaproic Acid 500 Mg Tab) 1,000 mg PO Q8 [facility] Last Admin: 10/21/16 14:32 Dose: 1,000 mg Cyproheptadine HCl (Periactin) 4 mg PO DAILY [facility] Last Admin: 10/21/16 09:49 Dose: 4 mg Hydromorphone HCl (Dilaudid) 1 mg IVP Q4H PRN PRN Reason: Pain, severe (8-10) Last Admin: 10/17/16 21:38 Dose: 1 mg Sodium Chloride (Sodium Chloride 0.9%) 1,000 mls @ 100 mls/hr IV .Q10H [facility] Last Admin: 10/21/16 14:33 Dose: 100 mls/hr Ondansetron HCl (Zofran Inj) 4 mg IVP Q6H PRN PRN Reason: Nausea/Vomiting Last Admin: 10/16/16 14:06 Dose: 4 mg Pantoprazole Sodium (Protonix Ec Tab) 40 mg PO 0600 [facility] Last Admin: 10/21/16 05:48 Dose: 40 mg - Labs Labs: 10/21/16 07:40 10/21/16 07:40 PT 11.0 Seconds (9.9-11.8) 10/09/16 20:30 INR 1.02 (0.93-1.08) 10/09/16 20:30 APTT 27.3 Seconds (23.7-30.8) 10/09/16 20:30 Attending/Attestation - Attestation I have personally seen and examined this patient.: Yes I have fully participated in the care of the patient.: Yes I have reviewed all pertinent clinical information, including history, physical exam and plan: Yes Notes (Text): 10/21/16 17:56 Attending note; Patient seen and examined with resident. Patient is a 61-year-old male is admitted with suprapubic pain. patient with a history of bladder cancer and did not receive any treatment. CT showed significant bladder mass and right hydronephrosis. CT chest Is negative for any pulmonary mass of lymphadenopathy. status post cystoscopy and biopsy. Currently has previously Alas catheter with continuous bladder irrigation. Hematuria is resolving. 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 Oncology evaluation appreciated. MRI ordered to rule out possible hepatic metastasis. Needs PET scan as outpatient. anemia: Monitor hemoglobin closely. Patient needs close follow up with oncology/urological surgery as outpatient.
[2016-10-20 21:55] VITALS: O2SAT 98
[2016-10-21] MEDS: Pantoprazole 40 mg EC Tab PO SCH (05:48)
--- NOTE | 2016-10-21 06:18 | PN ---
LOCATION: Patient is in room 577, bed 2. SUBJECTIVE: This male was admitted with significant hematuria and a background history of having recently been diagnosed with high-grade bladder tumor at [facility] in [place]. He was admitted again to [facility] with failure to thrive and significant hematuria, requiring workup. Patient required transfusion. CAT scan of the abdomen and pelvis reveal multiple cysts in the liver versus metastatic disease and high-grade hydronephrosis in the right side secondary to ureteral obstruction on the right side. Patient underwent cystoscopy demonstrating a large tumor in the bladder that was resected in pieces and biopsy is consistent with high-grade urothelial malignancy, transitional cell during invasion of the muscularis muscle with lymphovascular invasion as well. In view of the findings of the cyst on the liver, the patient had an MRI of the liver done today, which was being read as showing cysts and no evidence of metastatic disease. Patient also had a Richardson catheter put in 3 days ago. He is on CPR for post-cystoscopy and biopsy. He is eating. He has been started on epsilon aminocaproic acid, Amicar 1 gram every 8 hours along with CBI and his urine has become rita colored. The patient is feeling better. Denies any chest pain, shortness of breath, nausea, vomiting, lightheadedness, dizziness, abdominal pain, constipation, diarrhea or any other significant complaints. PHYSICAL EXAMINATION GENERAL: Patient is awake, alert, and oriented. VITAL SIGNS: T-Max is 98.4, heart rate is 77, respirations 18, blood pressure 112/62, O2 sat is 97% on room air. HEENT: Head is normocephalic, atraumatic. Temporal muscle wasting is noted. Patient appears to be emaciated. Examination of the oropharynx reveals no oropharyngeal lesions. Tongue is moist. No ulcerations are noted. No evidence of fungal infection is noted. NECK: Supple. There is no adenopathy. No jugular venous distention noted. LUNGS: Clear to percussion and auscultation. CARDIOVASCULAR: Reveals S1 and S2 to be normal. No gallop or murmur is heard. ABDOMEN: Soft, nontender. Bowel sounds are present. No rebound, rigidity or guarding is noted. No suprapubic tenderness is noted. EXTREMITIES: Reveals no cyanosis, clubbing or edema. Patient has a three-way Richardson catheter. He is on CBI irrigation at this time and is symptom bagley and functionality bagley things appeared to be improving. Patient's hemoglobin is dropped to 8. May required transfusion before plans for discharge. Patient's medications are reviewed and they are unchanged at this time. LABORATORY DATA: Lab data from today reveals white count is 8, hemoglobin 8.7, hematocrit 27, platelet count 391, this is from 10/20/2016. Electrolytes are unremarkable. Today's CBC will also be reviewed and they revealed the following. Today's white count is 8, hemoglobin is 8.7 with a platelet count of 391,000. If the hemoglobin keeps to be trending down just before release in view of the active bleeding from the bladder, it maybe prudent to transfuse him before letting him go home. ASSESSMENT AND PLAN: Patient has high-grade urothelial malignancy with lymphovascular invasion as evidenced on the biopsy, which would be of concern to us. If the patient has T3 lesion of the bladder whether he need any neoadjuvant therapy or should he be considered for something surgically to be explored. These options will have to be given to the family once we get the PET/CT done as an outpatient to check for disease outside the bladder this time to see if the patient is a candidate for neoadjuvant chemotherapy followed by cystectomy, but after discussion with the patient's family regarding the treatment plans, it may have to be offered to him. In the meantime, we will continue the Amicar at least for another 2 or 3 days even if his Richardson is discontinued as to prevent any further episodes of bleeding until the healing is taking place inside temporarily. Routine post exam instructions have been given to the patient. I will speak to son about her treatment plans which I have already spoken to and reaffirm to him what we need to do as an outpatient. We will speak to the attending as a resident on the case as well. Fredy Aldana MD
[2016-10-21 07:47] LABS: BASO # 0.02 K/mm3 (0.0-2.0); BASO % 0.2 % (0.0-3.0); EOS # 0.4 (0.0-0.7); GRAN # 6.07 (1.4-6.5); GRAN % 69.1 % (50.0-68.0); HEMATOCRIT 28.4 % (42.0-52.0); LYMPH # 1.6 (1.2-3.4); LYMPH % 18.5 % (22.0-35.0); MEAN CELL VOLUME 89.9 fl (80.0-105.0); MEAN CORPUSCULAR HEMOGLOBIN 28.2 pg (25.0-35.0); MEAN CORPUSCULAR HGB CONC 31.3 g/dl (31.0-37.0); MEAN PLATELET VOLUME 8.6 fl (7.0-11.0); MONO # 0.7 (0.1-0.6); MONO % 8.2 % (1.0-6.0); RED CELL DISTRIBUTION WIDTH 14.6 % (11.5-14.5); WHITE BLOOD COUNT 8.8 10^3/ul (4.5-11.0)
[2016-10-21 08:09] LABS: ALB/GLOB RATIO 1.1 (1.1-1.8); ALKALINE PHOSPHATASE 72 U/L (38-126); ALT/SGPT 33 U/L (7-56); AST/SGOT 37 U/L (17-59); BILIRUBIN,TOTAL 0.2 mg/dL (0.2-1.3); BLOOD UREA NITROGEN 14 mg/dL (7-21); CARBON DIOXIDE 27 mmol/L (21-33); CHLORIDE 103 mmol/L (98-107); GFR AFRICAN-AMERICAN > 60; GLUCOSE,RANDOM 94 mg/dL (70-110); POTASSIUM 4.6 mmol/L (3.6-5.0); SODIUM 140 mmol/L (132-148); TOTAL PROTEIN 6.6 g/dL (5.8-8.3)
--- NOTE | 2016-10-21 13:16 | CP.PCM.PN ---
<Logan Henriquez - Last Filed: 10/21/16 13:21> Subjective - Date & Time of Evaluation Date of Evaluation: 10/21/16 Time of Evaluation: :13 - Subjective Subjective: Patient was seen and examined at bedside. The patient denies any chest pain, shortness of breath, nausea, vomiting, lightheadedness, dizziness, abdominal pain, constipation, diarrhea, or any other complaints Objective - Vital Signs/Intake and Output Vital Signs (last 24 hours): Temp Pulse Resp BP Pulse Ox 98.2 F 71 20 114/57 L 98 10/21/16 07:30 10/21/16 07:30 10/21/16 07:30 10/21/16 07:30 10/21/16 07:30 Intake and Output: 10/21/16 10/21/16 06:59 18:59 Output Total 2300 Balance -2300 - Medications Medications: Current Medications Acetaminophen (Tylenol 325mg Tab) 650 mg PO Q4H PRN PRN Reason: Pain, Mild (1-3) Aminocaproic Acid (Aminocaproic Acid 500 Mg Tab) 1,000 mg PO Q8 [facility] Last Admin: 10/21/16 05:48 Dose: 1,000 mg Cyproheptadine HCl (Periactin) 4 mg PO DAILY [facility] Last Admin: 10/21/16 09:49 Dose: 4 mg Hydromorphone HCl (Dilaudid) 1 mg IVP Q4H PRN PRN Reason: Pain, severe (8-10) Last Admin: 10/17/16 21:38 Dose: 1 mg Sodium Chloride (Sodium Chloride 0.9%) 1,000 mls @ 100 mls/hr IV .Q10H [facility] Last Admin: 10/20/16 05:37 Dose: 100 mls/hr Ondansetron HCl (Zofran Inj) 4 mg IVP Q6H PRN PRN Reason: Nausea/Vomiting Last Admin: 10/16/16 14:06 Dose: 4 mg Pantoprazole Sodium (Protonix Ec Tab) 40 mg PO 0600 [facility] Last Admin: 10/21/16 05:48 Dose: 40 mg - Labs Labs: 10/21/16 07:40 10/21/16 07:40 PT 11.0 Seconds (9.9-11.8) 10/09/16 20:30 INR 1.02 (0.93-1.08) 10/09/16 20:30 APTT 27.3 Seconds (23.7-30.8) 10/09/16 20:30 - Constitutional Appears: No Acute Distress, Older Than Stated Age, Cachectic, Chronically Ill - Head Exam Head Exam: ATRAUMATIC, NORMAL INSPECTION, NORMOCEPHALIC - Eye Exam Eye Exam: EOMI, Normal appearance - ENT Exam ENT Exam: Mucous Membranes Moist - Respiratory Exam Respiratory Exam: Clear to Ausculation Bilateral. absent: Rales, Rhonchi, Wheezes, Stridor - Cardiovascular Exam Cardiovascular Exam: RRR, +S1, +S2 - GI/Abdominal Exam GI & Abdominal Exam: Soft, Normal Bowel Sounds. absent: Tenderness - Extremities Exam Extremities Exam: absent: Pedal Edema - Neurological Exam Neurological Exam: Alert, Awake, Oriented x3 - Psychiatric Exam Psychiatric exam: Normal Affect, Normal Mood Assessment and Plan - Assessment and Plan (Free Text) Assessment: 61 Cypriot and Kazakh speaking M with PMH bladder cancer s/p laser resection (2016), admitted for gross hematuria 2/2 to bladder mass shown on CT. CT also showed hydronephrosis 2/2 to bladder mass. Patient found to be anemic on admission, likely secondary to the gross hematuria. 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 Invasive into lamina propia and muscularis lymphovascular invasion identified. Plan: 1. Hematuria 2/2 likely uretero obstructing mass: - Output = 5800ml. Urine clear in the morning but scant pink by afternoon. - UA on admission showed clear yellow urine, protein 100, large blood, rbc tntc , + nitrate and trace leuk esterase, few bacteria, neg bili, 2-5 wbcs. - Urine Cultures and blood cultures negative - Normal Kidney function. Afebrile and no leukocytosis present. - CT chest did not show any pulmonary masses or lymph nodes -Continue CBI w/ Aminocaproic Acid. Surgery resident placed alas(10/16) -MRI Abd read Small simple cyst in the liver. No evidence of enhancing metastases. Right sided hyrdronephrosis 2. Normocytic Anemia 2/2 to gross hematuria: - Likely 2/2 acute blood loss. -Hgb 8.9 today -Transfuse if Hgb below 7 -Monitor closely 3. Hx of high grade transitional cell carcinoma: - Urology consulted, Dr. 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 Invasive into lamina propia and muscularis lymphovascular invasion identified. - Oncology consulted, Dr. Jovan rodriguez appreciated. Will discuss with Urology further mangament. Patient will get PET scan on outpatient basis. - [facility] in [place], [place] called on (10/13). Faxed request for any pet scan records. NO PET scan records have been returned. - MRI Abd read Small simple cyst in the liver. No evidence of enhancing metastases. Right sided hyrdronephrosis DVT PPX: SCDs GI PPX: Protonix Patient seen, and examined, and reviewed with Attending Logan PGY-1 Dispo: Will likely DC tomorrow pending recs from Uro/Onc. CBI has been clamped. <Yani Mcconnell - Last Filed: 10/21/16 18:00> Objective - Vital Signs/Intake and Output Vital Signs (last 24 hours): Temp Pulse Resp BP Pulse Ox 98.2 F 71 20 114/57 L 98 10/21/16 07:30 10/21/16 07:30 10/21/16 07:30 10/21/16 07:30 10/21/16 07:30 Intake and Output: 10/21/16 10/21/16 06:59 18:59 Intake Total 540 Output Total 2300 Balance -2300 540 - Medications Medications: Current Medications Acetaminophen (Tylenol 325mg Tab) 650 mg PO Q4H PRN PRN Reason: Pain, Mild (1-3) Aminocaproic Acid (Aminocaproic Acid 500 Mg Tab) 1,000 mg PO Q8 [facility] Last Admin: 10/21/16 14:32 Dose: 1,000 mg Cyproheptadine HCl (Periactin) 4 mg PO DAILY [facility] Last Admin: 10/21/16 09:49 Dose: 4 mg Hydromorphone HCl (Dilaudid) 1 mg IVP Q4H PRN PRN Reason: Pain, severe (8-10) Last Admin: 10/17/16 21:38 Dose: 1 mg Sodium Chloride (Sodium Chloride 0.9%) 1,000 mls @ 100 mls/hr IV .Q10H [facility] Last Admin: 10/21/16 14:33 Dose: 100 mls/hr Ondansetron HCl (Zofran Inj) 4 mg IVP Q6H PRN PRN Reason: Nausea/Vomiting Last Admin: 10/16/16 14:06 Dose: 4 mg Pantoprazole Sodium (Protonix Ec Tab) 40 mg PO 0600 [facility] Last Admin: 10/21/16 05:48 Dose: 40 mg - Labs Labs: 10/21/16 07:40 10/21/16 07:40 PT 11.0 Seconds (9.9-11.8) 10/09/16 20:30 INR 1.02 (0.93-1.08) 10/09/16 20:30 APTT 27.3 Seconds (23.7-30.8) 10/09/16 20:30 Attending/Attestation - Attestation I have personally seen and examined this patient.: Yes I have fully participated in the care of the patient.: Yes I have reviewed all pertinent clinical information, including history, physical exam and plan: Yes Notes (Text): 10/21/16 17:57 Attending note; Patient seen and examined with resident. Patient is a 61-year-old male is admitted with suprapubic pain. patient with a history of bladder cancer and did not receive any treatment. CT showed significant bladder mass and right hydronephrosis. CT chest Is negative for any pulmonary mass of lymphadenopathy. status post cystoscopy and biopsy. Currently has previously Alas catheter with continuous bladder irrigation. Hematuria is clearing. Bladder irrigation stopped. Dr. Woods explained the diagnosis and treatment plan per patient's son in detail. He referred the patient to tertiary care center for complete bladder removal with neobladder procedure. He might benefit from neoadjuvant chemotherapy. 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 Oncology evaluation appreciated. MRI did not show any hepatic metastasis. Needs PET scan as outpatient. anemia: Hemoglobin is stable. Patient needs close follow up with oncology/urological surgery as outpatient. The diagnosis and treatment option discussed with patient and patient's son in detail. Discussed with patient's [id number] in detail. Time spent over 1 hour.
[2016-10-21] MEDS: Sodium Chloride 0.9% 1,000 ML IV SCH (14:33)
[2016-10-22 00:42] VITALS: RESP 18
--- NOTE | 2016-10-22 00:51 | PN ---
DATE: 10/21/2016 This is [facility]'s [facility] visit on the medical floor. For Dr. Aldana. SUBJECTIVE: The patient is a 61-year-old male seen sitting up in bed in no acute distress. At this visit, admitted for high-grade bladder tumor with significant hematuria. Now resting comfortably. Started on Amicar recently with the patient being monitored clinically. OBJECTIVE: VITAL SIGNS: Temperature 92, pulse 71, respirations 20, blood pressure 114/57, pulse ox 98%. HEENT: Unremarkable. He appears Cachectic. Temporal muscle wasting is noted. NECK: Supple. HEART: Regular rate. LUNGS: Clear. ABDOMEN: Scaphoid, nontender. EXTREMITIES: No edema. SKIN: Warm and dry. He has Richardson in situ appears to be pinkish urine. LABORATORY DATA: The patient's labs were done to include a white blood cell count of 8.8, hemoglobin of 8.9, hematocrit 28.4, platelet count of 417,000 with chem metabolic panel completely within normal range. The patient had MRI of his abdomen done yesterday, it was read as small simple cyst of the liver. No evidence of enhancing metastasis, right-sided hydronephrosis. ASSESSMENT: For this patient is that of high-grade muscle invasive transitional cell carcinoma with cystectomy as per Dr. Woods, urology; cachexia; malignancy; hematuria; anemia secondary to hematuria; hydronephrosis; suprapubic pain. PLAN: The plan for this patient after conversation with Dr. Aldana is to continue present medical regimen consideration of transfusion for his anemia. We will monitor clinically with labs. Further workup as an outpatient including PET/CT scan and further recommendations as indicated. Prognosis for this patient is guarded. Jeevan Saldivar MD
[2016-10-22] MEDS: Sodium Chloride 0.9% 1,000 ML IV SCH (02:48)
[2016-10-22] MEDS: Pantoprazole 40 mg EC Tab PO SCH (06:25)
[2016-10-22 07:17] LABS: BASO # 0.03 K/mm3 (0.0-2.0); BASO % 0.3 % (0.0-3.0); EOS # 0.3 (0.0-0.7); EOS % 3.6 % (1.5-5.0); GRAN # 6.07 (1.4-6.5); GRAN % 68.9 % (50.0-68.0); HEMATOCRIT 27.7 % (42.0-52.0); LYMPH # 1.7 (1.2-3.4); LYMPH % 19.7 % (22.0-35.0); MEAN CELL VOLUME 90.2 fl (80.0-105.0); MEAN PLATELET VOLUME 8.3 fl (7.0-11.0); MONO # 0.7 (0.1-0.6); MONO % 7.5 % (1.0-6.0); RED CELL DISTRIBUTION WIDTH 14.7 % (11.5-14.5); WHITE BLOOD COUNT 8.8 10^3/ul (4.5-11.0)
[2016-10-22 07:25] LABS: ALB/GLOB RATIO 1.1 (1.1-1.8); ALKALINE PHOSPHATASE 80 U/L (38-126); ALT/SGPT 35 U/L (7-56); AST/SGOT 39 U/L (17-59); BILIRUBIN,TOTAL 0.1 mg/dL (0.2-1.3); BLOOD UREA NITROGEN 17 mg/dL (7-21); CALCIUM 8.6 mg/dL (8.4-10.5); CARBON DIOXIDE 28 mmol/L (21-33); CHLORIDE 103 mmol/L (98-107); GFR AFRICAN-AMERICAN > 60; GLUCOSE,RANDOM 101 mg/dL (70-110); POTASSIUM 4.2 mmol/L (3.6-5.0); SODIUM 143 mmol/L (132-148); TOTAL PROTEIN 6.3 g/dL (5.8-8.3)
[2016-10-22 08:33] VITALS: BP 125/75; PULSE 75; TEMP 98.3
--- NOTE | 2016-10-22 15:09 | CP.PCM.DIS ---
<Logan Henriquez - Last Filed: 10/22/16 17:31> Provider - Provider Date of Admission: 10/11/16 14:10 Attending physician: Ulysses Greene MD Consults: Uro - Dr. Woods Onc - Dr. Aldana Time Spent in preparation of Discharge (in minutes): 40 Hospital Course - Lab Results Lab Results: Most Recent Lab Values WBC 8.8 10^3/ul (4.5-11.0) 10/22/16 06:45 RBC 3.07 10^6/uL (3.5-6.1) L 10/22/16 06:45 Hgb 8.6 g/dL (14.0-18.0) L 10/22/16 06:45 Hct 27.7 % (42.0-52.0) L 10/22/16 06:45 MCV 90.2 fl (80.0-105.0) 10/22/16 06:45 MCH 28.0 pg (25.0-35.0) 10/22/16 06:45 MCHC 31.0 g/dl (31.0-37.0) 10/22/16 06:45 RDW 14.7 % (11.5-14.5) H 10/22/16 06:45 Plt Count 416 10^3/uL (120.0-450.0) 10/22/16 06:45 MPV 8.3 fl (7.0-11.0) 10/22/16 06:45 Gran % 68.9 % (50.0-68.0) H 10/22/16 06:45 Lymph % (Auto) 19.7 % (22.0-35.0) L 10/22/16 06:45 [place] % (Auto) 7.5 % (1.0-6.0) H 10/22/16 06:45 Eos % (Auto) 3.6 % (1.5-5.0) 10/22/16 06:45 Baso % (Auto) 0.3 % (0.0-3.0) 10/22/16 06:45 Gran # 6.07 (1.4-6.5) 10/22/16 06:45 Lymph # 1.7 (1.2-3.4) 10/22/16 06:45 [place] # 0.7 (0.1-0.6) H 10/22/16 06:45 Eos # 0.3 (0.0-0.7) 10/22/16 06:45 Baso # 0.03 K/mm3 (0.0-2.0) 10/22/16 06:45 PT 11.0 Seconds (9.9-11.8) 10/09/16 20:30 INR 1.02 (0.93-1.08) 10/09/16 20:30 APTT 27.3 Seconds (23.7-30.8) 10/09/16 20:30 Sodium 143 mmol/L (132-148) 10/22/16 06:45 Potassium 4.2 mmol/L (3.6-5.0) 10/22/16 06:45 Chloride 103 mmol/L (98-107) 10/22/16 06:45 Carbon Dioxide 28 mmol/L (21-33) 10/22/16 06:45 Anion Gap 16 (10-20) 10/22/16 06:45 BUN 17 mg/dL (7-21) 10/22/16 06:45 Creatinine 0.9 mg/dL (0.5-1.4) 10/22/16 06:45 Est GFR ( Amer) > 60 10/22/16 06:45 Est GFR (Non-Af Amer) > 60 10/22/16 06:45 Random Glucose 101 mg/dL (70-110) 10/22/16 06:45 Calcium 8.6 mg/dL (8.4-10.5) 10/22/16 06:45 Phosphorus 2.9 mg/dL (2.5-4.5) 10/12/16 06:45 Magnesium 1.8 mg/dL (1.7-2.2) 10/12/16 06:45 Iron 34 ug/dL (45-180) L 10/10/16 07:00 TIBC 261 ug/dL (261-462) 10/10/16 07:00 % Saturation 13 % (20-55) L 10/10/16 07:00 Ferritin 39.3 ng/mL 10/10/16 09:10 Total Bilirubin 0.1 mg/dL (0.2-1.3) L 10/22/16 06:45 AST 39 U/L (17-59) 10/22/16 06:45 ALT 35 U/L (7-56) 10/22/16 06:45 Alkaline Phosphatase 80 U/L (38-126) 10/22/16 06:45 Ammonia < 9 umol/L (9-33) L 10/09/16 20:30 NT-Pro-B Natriuret Pep 508 pg/mL (0-450) H 10/09/16 20:30 Total Protein 6.3 g/dL (5.8-8.3) 10/22/16 06:45 Albumin 3.3 g/dL (3.0-4.8) 10/22/16 06:45 Globulin 3.0 gm/dL 10/22/16 06:45 Albumin/Globulin Ratio 1.1 (1.1-1.8) 10/22/16 06:45 Carcinoembryonic Ag 1.4 ng/mL (0.0-3.0) 10/13/16 06:55 Vitamin B12 > 1000 pg/mL (239-931) H 10/10/16 09:10 Folate 8.6 ng/mL 10/10/16 09:10 Urine Color Yellow (YELLOW) 10/09/16 20:30 Urine Appearance Clear (CLEAR) 10/09/16 20:30 Urine pH 8.5 (4.7-8.0) 10/09/16 20:30 Ur Specific [place] 1.015 (1.005-1.035) 10/09/16 20:30 Urine Protein 100 mg/dL (<30 mg/dL) H 10/09/16 20:30 Urine Glucose (UA) Negative mg/dL (NEGATIVE) 10/09/16 20:30 Urine Ketones Negative mg/dL (NEGATIVE) 10/09/16 20:30 Urine Blood Large (NEGATIVE) H 10/09/16 20:30 Urine Nitrate Positive (NEGATIVE) H 10/09/16 20:30 Urine Bilirubin Negative (NEGATIVE) 10/09/16 20:30 Urine Urobilinogen 1.0 E.U./dL (<1 E.U./dL) H 10/09/16 20:30 Ur Leukocyte Esterase Trace Johnny/uL (NEGATIVE) H 10/09/16 20:30 Urine RBC Tntc /hpf (0-2) 10/09/16 20:30 Urine WBC 2 - 5 /hpf (0-6) 10/09/16 20:30 Ur Epithelial Cells None /hpf (0-5) 10/09/16 20:30 Urine Bacteria Few (NEG) 10/09/16 20:30 Blood Type AB POSITIVE 10/15/16 11:08 Blood Type Confirm AB POSITIVE 10/15/16 12:45 Antibody Screen Negative 10/15/16 11:08 Crossmatch See Detail 10/15/16 11:08 BBK History Checked No verified bt 10/15/16 11:08 - Hospital Course Hospital Course: This patient is a 61 Y[place] and Korean speaking M with PMH bladder cancer s/p laser resection (06/2016), admitted for gross hematuria 2/2 to bladder mass shown on CT with associated suprapubic tenderness and dysuria. CT also showed hydronephrosis 2/2 to bladder mass. Patient found to be anemic on admission, likely secondary to the gross hematuria. Urology and Oncology were consulted on the case. Urine and blood cultures were negative. Patient has normal kidney function and was afebrile w/o leukocytosis. CT of chest did not show any pulmonary masses or lymph nodes. MRI of Abdomen read small simple cyst in the liver and no evidence of enhancing metastasis, with R sided hyrdonephrosis. Patient began treatment with fluids and analgesics for pain control. He was also put on prophylactic antibiotics due to elevated Leukocyte Esterase in urine. Antibiotic was DCd when Urine culture returned negative. Post cystoscopy, patient was put on CBI therapy with aminocaproic acid (which he also sent home with) to control hematuria. 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 Patient was also anemic during admission and was transfused [address] Woods (urologist) explained the diagnosis and treatment plan per patients son in detail. He referred the patient to tertiary care center for complete bladder removal with neobladder procedure. Patients family (especially daughter in law) were very demanding during hospital course, frequently asking images to be order and 100% conclusive results. Patient will follow up with Urology and and Oncology (Dr. Aldana) within 1 week and will schedule an outpatient pet scan as soon as possible. Patient will go home with 1 week supply of Aminocaproic acid. Patient is agreeable to plan and medications. Patient seen, examined, and reviewed with Attending Logan Henriquez PGY-1 - Date & Time of H&P Date of H&P: 10/22/16 Time of H&P: 17:31 Discharge Exam - Head Exam Head Exam: ATRAUMATIC, NORMAL INSPECTION, NORMOCEPHALIC - Eye Exam Eye Exam: EOMI, Normal appearance - ENT Exam ENT Exam: Mucous Membranes Moist - Respiratory Exam Respiratory Exam: Clear to PA & Lateral, NORMAL BREATHING PATTERN, UNREMARKABLE - Cardiovascular Exam Cardiovascular Exam: RRR, +S1, +S2 - GI/Abdominal Exam GI & Abdominal Exam: Normal Bowel Sounds, Soft. absent: Organomegaly, Tenderness - Exam Exam: absent: Scrotal Swelling External exam: NORMAL EXTERNAL EXAM - Back Exam Back exam: absent: CVA tenderness (L), CVA tenderness (R) - Neurological Exam Neurological exam: Alert, Oriented x3 - Psychiatric Exam Psychiatric exam: Normal Affect, Normal Mood Discharge Plan - Discharge Medications Prescriptions: Aminocaproic Acid [Aminocaproic Acid 500 mg Tab] 1,000 mg PO Q8 #15 tab - Follow Up Plan Condition: GUARDED Disposition: HOME/ ROUTINE Instructions: Blood Transfusion (DC), Bladder Cancer (DC), Acute Hematuria (DC) , Anemia (DC), Fall Prevention (DC) Additional Instructions: Discharge instructions: - follow up with urology - follow up with oncology within 1 week - outpatient pet scan - if new or worsening symptoms return to emergency department Referrals: Fredy Aldana MD [Staff Provider] - Sandro Woods MD [Staff Provider] - <Ulysses Greene MD - Last Filed: 10/22/16 18:40> Provider - Provider Date of Admission: 10/11/16 14:10 Attending physician: Ulysses Greene MD Hospital Course - Lab Results Lab Results: Most Recent Lab Values WBC 8.8 10^3/ul (4.5-11.0) 10/22/16 06:45 RBC 3.07 10^6/uL (3.5-6.1) L 10/22/16 06:45 Hgb 8.6 g/dL (14.0-18.0) L 10/22/16 06:45 Hct 27.7 % (42.0-52.0) L 10/22/16 06:45 MCV 90.2 fl (80.0-105.0) 10/22/16 06:45 MCH 28.0 pg (25.0-35.0) 10/22/16 06:45 MCHC 31.0 g/dl (31.0-37.0) 10/22/16 06:45 RDW 14.7 % (11.5-14.5) H 10/22/16 06:45 Plt Count 416 10^3/uL (120.0-450.0) 10/22/16 06:45 MPV 8.3 fl (7.0-11.0) 10/22/16 06:45 Gran % 68.9 % (50.0-68.0) H 10/22/16 06:45 Lymph % (Auto) 19.7 % (22.0-35.0) L 10/22/16 06:45 [place] % (Auto) 7.5 % (1.0-6.0) H 10/22/16 06:45 Eos % (Auto) 3.6 % (1.5-5.0) 10/22/16 06:45 Baso % (Auto) 0.3 % (0.0-3.0) 10/22/16 06:45 Gran # 6.07 (1.4-6.5) 10/22/16 06:45 Lymph # 1.7 (1.2-3.4) 10/22/16 06:45 [place] # 0.7 (0.1-0.6) H 10/22/16 06:45 Eos # 0.3 (0.0-0.7) 10/22/16 06:45 Baso # 0.03 K/mm3 (0.0-2.0) 10/22/16 06:45 PT 11.0 Seconds (9.9-11.8) 10/09/16 20:30 INR 1.02 (0.93-1.08) 10/09/16 20:30 APTT 27.3 Seconds (23.7-30.8) 10/09/16 20:30 Sodium 143 mmol/L (132-148) 10/22/16 06:45 Potassium 4.2 mmol/L (3.6-5.0) 10/22/16 06:45 Chloride 103 mmol/L (98-107) 10/22/16 06:45 Carbon Dioxide 28 mmol/L (21-33) 10/22/16 06:45 Anion Gap 16 (10-20) 10/22/16 06:45 BUN 17 mg/dL (7-21) 10/22/16 06:45 Creatinine 0.9 mg/dL (0.5-1.4) 10/22/16 06:45 Est GFR ( Amer) > 60 10/22/16 06:45 Est GFR (Non-Af Amer) > 60 10/22/16 06:45 Random Glucose 101 mg/dL (70-110) 10/22/16 06:45 Calcium 8.6 mg/dL (8.4-10.5) 10/22/16 06:45 Phosphorus 2.9 mg/dL (2.5-4.5) 10/12/16 06:45 Magnesium 1.8 mg/dL (1.7-2.2) 10/12/16 06:45 Iron 34 ug/dL (45-180) L 10/10/16 07:00 TIBC 261 ug/dL (261-462) 10/10/16 07:00 % Saturation 13 % (20-55) L 10/10/16 07:00 Ferritin 39.3 ng/mL 10/10/16 09:10 Total Bilirubin 0.1 mg/dL (0.2-1.3) L 10/22/16 06:45 AST 39 U/L (17-59) 10/22/16 06:45 ALT 35 U/L (7-56) 10/22/16 06:45 Alkaline Phosphatase 80 U/L (38-126) 10/22/16 06:45 Ammonia < 9 umol/L (9-33) L 10/09/16 20:30 NT-Pro-B Natriuret Pep 508 pg/mL (0-450) H 10/09/16 20:30 Total Protein 6.3 g/dL (5.8-8.3) 10/22/16 06:45 Albumin 3.3 g/dL (3.0-4.8) 10/22/16 06:45 Globulin 3.0 gm/dL 10/22/16 06:45 Albumin/Globulin Ratio 1.1 (1.1-1.8) 10/22/16 06:45 Carcinoembryonic Ag 1.4 ng/mL (0.0-3.0) 10/13/16 06:55 Vitamin B12 > 1000 pg/mL (239-931) H 10/10/16 09:10 Folate 8.6 ng/mL 10/10/16 09:10 Urine Color Yellow (YELLOW) 10/09/16 20:30 Urine Appearance Clear (CLEAR) 10/09/16 20:30 Urine pH 8.5 (4.7-8.0) 10/09/16 20:30 Ur Specific [place] 1.015 (1.005-1.035) 10/09/16 20:30 Urine Protein 100 mg/dL (<30 mg/dL) H 10/09/16 20:30 Urine Glucose (UA) Negative mg/dL (NEGATIVE) 10/09/16 20:30 Urine Ketones Negative mg/dL (NEGATIVE) 10/09/16 20:30 Urine Blood Large (NEGATIVE) H 10/09/16 20:30 Urine Nitrate Positive (NEGATIVE) H 10/09/16 20:30 Urine Bilirubin Negative (NEGATIVE) 10/09/16 20:30 Urine Urobilinogen 1.0 E.U./dL (<1 E.U./dL) H 10/09/16 20:30 Ur Leukocyte Esterase Trace Johnny/uL (NEGATIVE) H 10/09/16 20:30 Urine RBC Tntc /hpf (0-2) 10/09/16 20:30 Urine WBC 2 - 5 /hpf (0-6) 10/09/16 20:30 Ur Epithelial Cells None /hpf (0-5) 10/09/16 20:30 Urine Bacteria Few (NEG) 10/09/16 20:30 Blood Type AB POSITIVE 10/15/16 11:08 Blood Type Confirm AB POSITIVE 10/15/16 12:45 Antibody Screen Negative 10/15/16 11:08 Crossmatch See Detail 10/15/16 11:08 BBK History Checked No verified bt 10/15/16 11:08 Attending/Attestation - Attestation I have personally seen and examined this patient.: Yes I have fully participated in the care of the patient.: Yes I have reviewed all pertinent clinical information, including history, physical exam and plan: Yes Notes (Text): 10/22/16 18:36 Patient was seen and examined with biomedical manager. 61-year-old male is admitted with suprapubic pain. patient with a history of bladder cancer and did not receive any treatment. CT showed significant bladder mass and right hydronephrosis. CT chest Is negative for any pulmonary mass of lymphadenopathy. Patient underwent cystoscopy and biopsy, later on developed hematuria was treated with with continuous bladder irrigation. 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 Dr. Woods explained the diagnosis and treatment plan per patient's son in detail. He referred the patient to tertiary care center for complete bladder removal with neobladder procedure. He might benefit from neoadjuvant chemotherapy. MRI did not show any hepatic metastasis. Needs PET scan as outpatient. Patient needs close follow up with oncology/urological surgery as outpatient.
== END 2016-10-22 15:42 | disposition home or self-care (01) | DRG 310 ==
LOC: ED 20:08 → ERH 23:48 → 5RSO 10-10 02:05 → OBSVTOIN 10-11 14:10 → 5RSO 10-20 12:00
PROVIDERS: ADMIT Internal Medicine; ATTEND Internal Medicine
PROC: 0TBB8ZZ Excision of Bladder, Via Natural or Artificial Opening Endoscopic (ICD-10-PCS; principal; 2016-10-14 07:30)
PROC: 30233N1 Transfusion of Nonautologous Red Blood Cells into Peripheral Vein, Percutaneous Approach (ICD-10-PCS; 2016-10-15)
DX: C67.9 Malignant neoplasm of bladder, unspecified (principal); C78.7 Secondary malignant neoplasm of liver and intrahepatic bile duct; R64 Cachexia; N13.1 Hydronephrosis with ureteral stricture, not elsewhere classified; N30.01 Acute cystitis with hematuria; D50.0 Iron deficiency anemia secondary to blood loss (chronic); R62.7 Adult failure to thrive; Z87.891 Personal history of nicotine dependence; K76.89 Other specified diseases of liver